=== PATIENT | female | born 1960 | race Caucasian/White ===

== ENCOUNTER → 2017-03-06 | Outpatient (CLI) | payer MEDICARE, OTHER ==
--- NOTE | 2017-03-07 09:15 | MM ---
Reason for exam: screening (asymptomatic). Last mammogram was performed 13 years and 2 months ago. History: Patient is postmenopausal. Family history of breast cancer in mother. Physical Findings: A clinical breast exam by your physician is recommended on an annual basis and results should be correlated with mammographic findings. MG 3D Screening Mammo W/Cad Bilateral CC and MLO view(s) were taken. Prior study comparison: January 07, 2004, left breast special view mammogram. December 26, 2003, bilateral screening mammogram. The breast tissue is heterogeneously dense. This may lower the sensitivity of mammography. There is chronic nodularity bilaterally. There is no dominant lesion. ASSESSMENT: Benign, BI-RAD 2 RECOMMENDATION: Routine screening mammogram of both breasts in 1 year.
== END | disposition home or self-care (01) ==
LOC: RADMAMWWP 09:09
PROVIDERS: ATTEND Family Medicine
DX: Z12.31 Encounter for screening mammogram for malignant neoplasm of breast (principal); Z80.3 Family history of malignant neoplasm of breast
CPT/HCPCS: 77063; 77067

== ENCOUNTER → 2017-06-29 | Outpatient (CLI) | payer MEDICARE, OTHER ==
--- NOTE | 2017-06-29 16:58 | CTL ---
EXAMINATION TYPE: CT Low Dose Lung DATE OF EXAM ORDERED: 06/29/2017 HISTORY: . Lung cancer screening CT DLP: 81.[address] CTDI: 2.4 mGy Automated exposure control for dose reduction was used. SCREENING VISIT: Initial COMPARISON: None TECHNIQUE: Low dose computed tomography scan was performed through the chest at 1 mm thick sections a nd reconstructed images in the coronal plane at [address] DIAGNOSTIC QUALITY: Satisfactory FINDINGS: LUNG NODULES: None. LUNGS: COPD: Severity: None Fibrosis: Severity: None Lymph nodes: None Other findings: Ascending thoracic aorta at the main pulmonary artery is 3.7 cm. In pulmonary artery bifurcation is 2.6 cm. RIGHT PLEURAL SPACE: Effusion: None Calcification: None Thickening: None Pneumothorax: None LEFT PLEURAL SPACE: Effusion: None Calcification: None Thickening: None Pneumothorax: None HEART: Heart Size: Normal Coronary calcification: Minimal Pericardial effusion: None OTHER FINDINGS: Upper abdomen: Normal Bony thorax: Normal Supraclavicular region: Normal Other: No remarkable findings IMPRESSION: No suspicious changes suggest early malignancy FOLLOW UP CT CHEST RECOMMENDATION: No CT LUNG RAD: Lung rad 1
== END | disposition home or self-care (01) ==
LOC: RADCTMAIN 15:36
PROVIDERS: ATTEND Family Medicine
DX: Z12.2 Encounter for screening for malignant neoplasm of respiratory organs (principal); Z87.891 Personal history of nicotine dependence

== ENCOUNTER 2023-01-29 07:53 | Inpatient (IN) | payer MEDICARE, OTHER ==
[2023-01-29] MEDS ORDERED: LIDOCAINE 1% INJ 10MG/ML (20 ML MDV) ONE (09:01)
[2023-01-29] MEDS ORDERED: VERAPAMIL 2.5 MG/ML 2 ML AMP ONE (09:02)
[2023-01-29] MEDS ORDERED: HEPARIN SODIUM 1,000 UN/ML (10ML VL) ONE (09:33)
[2023-01-29] MEDS ORDERED: fentaNYL (PF) 50 MCG/ML 2 ML AMP ONE (09:33)
[2023-01-29] MEDS: SODIUM CHLORIDE 0.9% 250 ML IV ONE (09:44)
[2023-01-29] MEDS: IV FLUID CONTINUATION 1,000 ML IV ONE (09:44)
[2023-01-29] MEDS: fentaNYL (PF) 50 MCG/ML 2 ML AMP IVP ONE (09:51)
[2023-01-29] MEDS: LIDOCAINE 1% INJ 10MG/ML (20 ML MDV) SQ ONE (09:53)
[2023-01-29] MEDS: VERAPAMIL SYRINGE (5 MG/10 ML) INTRAARTER ONE (09:54)
[2023-01-29] MEDS: MIDAZOLAM 2 MG/2 ML VIAL IVP ONE (09:56)
[2023-01-29] MEDS: HEPARIN SODIUM 1,000 UN/ML (10ML VL) IV ONE (09:59)
[2023-01-29] MEDS ORDERED: PRASUGREL 10 MG TAB ONE (10:03)
[2023-01-29] MEDS: PRASUGREL 10 MG TAB PO ONE (10:06)
[2023-01-29] MEDS: IOPAMIDOL-370 100ML BTL INJ ONE ×2 (10:15→10:44)
[2023-01-29] MEDS: NITROGLYCERIN 1000MCG/10ML SYRINGE INTRACORON ONE (10:17)
[2023-01-29] MEDS ORDERED: NITROGLYCERIN SL TABS 0.4 MG TAB SUBLINGUAL PRN (10:48)
[2023-01-29] MEDS ORDERED: ATROPINE SULFATE 0.1 MG/ML 10ML SYRINGE IV PRN (10:48)
[2023-01-29] MEDS ORDERED: RX INFO: IV CONTRAST WAS GIVEN 1 EACH MISC MISCELLANE PRN (10:48)
[2023-01-29] MEDS ORDERED: MAG HYDROX/AL HYDROX/SIMETH 30 ML CUP PO PRN (10:48)
[2023-01-29] MEDS ORDERED: ZOLPIDEM 5 MG TAB PO PRN (10:48)
--- NOTE | 2023-01-29 10:57 | P.CARDCATH ---
Date of Procedure: 01/29/23 Description of Procedure: Cardiac Catheterization: The patient is a 62-year-old female with a history of chronic tobacco use who presented with symptoms of chest discomfort to [facility], she was found to have an abnormal EKG and abnormal troponin. Recommendations were made regarding cardiac catheterization, the risks and the complications were discussed with the patient who is in full understanding and agreement. Procedure Description: Patient was brought to [facility] in fasting semi-sedated state after receiving Fentanyl and Benadryl achieiving moderate conscious sedated state. Using Xylocaine Anesthesia and modified Seldinger technique, a 6-Croatian sheath was introduced in the right radial artery . Subsequently, selective coronary angiography was performed using a 5-Croatian 3.5 bend Chiquis catheter. Multiple views of the coronary artery including hemiaxial views were obtained. The right Chiquis catheter was used to cross the aortic valve and LVEDP was calculated. PCI: After removing the catheters a 6-Croatian FL 4 guiding catheter was introduced. After cannulating the left main a 0.014 BMW J-wire was positioned in the distal left circumflex. Subsequently a 2.5 x 12 mm Treck balloon was advanced and inflation at 8 dragan was done. Subsequently the balloon was removed and a Calm [place] eye IVUS catheter was introduced and imaging were performed. After removing the catheter 2.5 x 23 mm Xience sadia point stent was deployed at 16 dragan. 3.0 x 8 mm NC Treck balloon was advanced and one inflation at 10 dragan was done in the proximal segment of the stent. Repeat IVUS was performed and after removing the catheter 3.5 x 8 mm NC Treck was advanced in one inflation in the proximal segment of the stent was done at 8 dragan. After removing the wire images were obtained and revealed stable successful stenting. Following that, catheter and sheath were removed. Hemostasis was obtained with deployment of vascular band . There was no immediate complication. Patient was returned to room in stable condition. Of note, the patient received a total of 9000 units of intravenous heparin as well as intra-arterial verapamil. She received an oral loading dose of Effient. Her ACT was monitored. She had mild EKG changes that resolved and her chest discomfort resolved at the end of the procedure. Findings: Left main: This is a short sized vessel that bifurcates into LAD and left circumflex, left main has no obstructive disease. LAD: This is a large size vessel, reaching to the apex, giving rise to a large diagonal branch proximally the LAD and its branches have no evidence of obstructive disease Left circumflex: This is a large nondominant vessel giving rise to 3 obtuse marginal branch, after the takeoff of the first obtuse marginal branch is a 95- 99% stenosis extending into the left circumflex after the second obtuse marginal branch. RCA: This is a large dominant vessel, bifurcating distally to PDA and PLV. The mid RCA has stent 20% plaque, the rest of the vessel has no high-grade stenosis Left Ventriculogram: Not performed Hemodynamics: There was no gradient across the aortic valve, LVEDP was 24-28 mmHg Conclusion: 1. 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 Mild disease in the mid RCA 3. Elevated LVEDP 4. Successful stenting of the mid left circumflex with reduction of stenosis from 95% to 0% with intravascular ultrasound imaging Recommendations: The patient will continue on aspirin and Effient without any interruption for one year in addition to aggressive coronary risk modifications and attempting to maintain her LDL below 70 mg/dL. The findings and the recommendations were discussed with the patient and the family and they were in full understanding and agreement. Duration of sedation is 48 minutes.
[2023-01-29 11:11] LABS: Glucose,Whole Blood 161 mg/dL (70-110)
[2023-01-29] MEDS: SODIUM CHLORIDE 0.9% 1,000 ML in EMPTY BAG 1 BAG IV SCH (11:39)
[2023-01-29] MEDS: lisinopriL 5 MG TAB PO SCH (11:39)
[2023-01-29] MEDS ORDERED: ALBUTEROL NEBULIZED 2.5 MG/3 ML INHALATION PRN (12:01)
--- NOTE | 2023-01-29 12:01 | P.HPIM ---
History of Present Illness this is a pleasant 62 years old female with past medical history of hypertension who presents to [facility] with signs and symptoms of NSTEMI with chest pain , WITH elevated troponin and no EKG changes. Patient was transferred to this facility [facility] and she underwent cardiac cath and successful PCI to the left mid circumflex artery with improvement of the stenosis from 95% and 0% She has other mild stenosis of the RCA which does not need to stenting for now. Currently patient lying in bed comfortable, currently she denies any chest pain She is hemodynamically stable Glucose 161. No labs and this facility Review of Systems Review of systems CONSTITUTIONAL: No fever, no malaise, no fatigue. HEENT: No recent visual problems or hearing problems. Denied any sore throat. CARDIOVASCULAR: No orthopnea, PND, no palpitations, no syncope. PULMONARY: No shortness of breath, no cough, no hemoptysis. GASTROINTESTINAL: No diarrhea, no nausea, no vomiting, no abdominal pain. Normoactive bowel sounds. NEUROLOGICAL: No headaches, no weakness, no numbness. HEMATOLOGICAL: Denies any bleeding or petechiae. GENITOURINARY: Denies any burning micturition, frequency, or urgency. MUSCULOSKELETAL/RHEUMATOLOGICAL: Denies any joint pain, swelling, or any muscle pain. ENDOCRINE: Denies any polyuria or polydipsia. Past Medical History Past Medical History: Hypertension Additional Past Medical History / Comment(s): back pain History of Any Multi-Drug Resistant Organisms: None Reported Past Surgical History: Cholecystectomy, Orthopedic Surgery, Tubal Ligation Past Psychological History: No Psychological Hx Reported Past Alcohol Use History: None Reported Past Drug Use History: None Reported Medications and Allergies Home Medications Medication Instructions Recorded Confirmed Type Hydrocodone/Acetaminophen [[place] 1 tab PO TID PRN 10/04/14 01/29/23 History 10-325] Albuterol Inhaler [Ventolin Hfa 1 - 2 puff INHALATION RT-Q6H PRN 01/29/23 01/29/23 History Inhaler] Insulin NPH Human Isophane 12 unit SQ AC-BRKFST 01/29/23 01/29/23 History [humuLIN N Kwikpen] Insulin NPH Human Isophane 35 unit SQ AC-SUPPER 01/29/23 01/29/23 History [humuLIN N Kwikpen] LORazepam [Ativan] 1 mg PO DIRECTED 01/29/23 01/29/23 History Levothyroxine Sodium [Synthroid] 125 mcg PO DAILY 01/29/23 01/29/23 History Naproxen [EC-Naprosyn] 500 mg PO BID PRN 01/29/23 01/29/23 History amLODIPine [Norvasc] 10 mg PO DAILY 01/29/23 01/29/23 History sitaGLIPtin [Januvia] 100 mg PO DAILY 01/29/23 01/29/23 History Allergies Allergy/AdvReac Type Severity Reaction Status Date / Time codeine Allergy Unknown Verified 01/29/23 11:47 Physical Exam Vitals: Vital Signs Temp Pulse Resp BP Pulse Ox 01/29/23 11:15 97.5 F L 62 17 147/66 97 01/29/23 11:02 61 28 H Intake and Output 01/28/23 01/29/23 01/29/23 22:59 06:59 14:59 Intake Total 304 Balance 304 Intake: IV 100 Intake, IV Titration 204 Amount Sodium Chloride 0.9% 1, 204 000 ml In Empty Bag 1 bag @ 1 ML/KG/HR 102 mls/hr IV .Q9H49M [facility] Rx#: [id number] Other: Weight 102 kg GENERAL: The patient is alert and oriented x3, not in any acute distress. Well developed, well nourished. HEENT: Pupils are round and equally reacting to light. EOMI. No scleral icterus. No conjunctival pallor. Normocephalic, atraumatic. No pharyngeal erythema. No thyromegaly. CARDIOVASCULAR: S1 and S2 present. No murmurs, rubs, or gallops. PULMONARY: Chest is clear to auscultation, no wheezing , no crackles. ABDOMEN: Soft, nontender, nondistended, normoactive bowel sounds. No palpable organomegaly. MUSCULOSKELETAL: No joint swelling or deformity. EXTREMITIES: No cyanosis, clubbing, or pedal edema. NEUROLOGICAL: Gross neurological examination did not reveal any focal deficits. SKIN: No rashes. no petechiae. Results Labs: Abnormal Lab Results - Last 24 Hours (Table) 01/29/23 Range/Units 11:09 POC Glucose (mg/dL) 161 H (70-110) mg/dL Assessment and Plan Assessment: None STEMI status post PCI to left circumflex artery Hypertension Obesity with BMI of 35.2 Plan: Continue with aspirin and effient On Lipitor high dose On lisinopril Cardiology consult on the case Further recommendation based on patient's progress DVT prophylaxis, already on dual antiplatelet therapy GI prophylaxis Pepcid.
[2023-01-29] MEDS: HYDROcodone/APAP 10-325MG 1 EACH TAB PO PRN (16:02)
[2023-01-29 20:13] LABS: Glucose,Whole Blood 182 mg/dL (70-110)
[2023-01-29] MEDS: FAMOTIDINE 20 MG/2 ML VIAL IV SCH (21:14)
[2023-01-29] MEDS: METOPROLOL TARTRATE 25 MG TAB PO SCH (21:14)
[2023-01-29] MEDS: ATORVASTATIN 80 MG TAB PO SCH (21:14)
[2023-01-30 00:34] VITALS: RESP 18
[2023-01-30 06:02] LABS: Glucose,Whole Blood 181 mg/dL (70-110)
[2023-01-30] MEDS: LEVOTHYROXINE 125 MCG TAB PO SCH (06:19)
[2023-01-30] MEDS: INSULIN ASPART (NovoLOG) 100 UNIT/ML VIAL SQ SCH (06:19)
[2023-01-30] MEDS: ASPIRIN 81 MG PO SCH (08:34)
[2023-01-30] MEDS: PRASUGREL 10 MG TAB PO SCH (08:34)
[2023-01-30 08:59] VITALS: BP 136/64; PULSE 64; TEMP 97.8
--- NOTE | 2023-01-30 11:05 | P.PN ---
Subjective HISTORY OF PRESENT ILLNESS: This a 62-year-old female who initially presented to [facility] with chest pain. She underwent cardiac catheterization yesterday revealing severe stenosis in the mid left circumflex, mild disease in the mid RCA, elevated LVEDP. Patient underwent successful stenting of the mid left circumflex. Patient examined this morning at the bedside. Patient denies chest pain or pressure. She denies shortness of breath. Vital signs are stable. Right radial cath site with pulse present. PHYSICAL EXAM: VITAL SIGNS: Reviewed. GENERAL: Well-developed in no acute distress. NECK: Supple. No JVD or thyromegaly LUNGS: Respirations even and unlabored. Lungs essentially clear to auscultation bilaterally. HEART: Regular rate and rhythm. S1 and S2 heard. EXTREMITIES: Normal range of motion. No clubbing or cyanosis. Peripheral pulses intact. No lower extremity edema ASSESSMENT: Non-STEMI Status post cardiac catheterization with stenting of the mid left circumflex Hypertension Hyperlipidemia Morbid obesity: BMI 35.2 Nicotine dependence, patient smokes 1 PPD PLAN: 2-D echo has been ordered. Await results Continue dual antiplatelet therapy with aspirin and Effient Continue high-intensity statin Continue additional cardiac medications Anticipate discharge home this afternoon Further recommendations pending patient's course Nurse practitioner note has been reviewed by physician. Signing provider agrees with the documented findings, assessment, and plan of care. Objective - Vital Signs Vital signs: Vital Signs Temp 97.8 F 01/30/23 08:00 Pulse 64 01/30/23 08:00 Resp 18 01/30/23 08:00 BP 136/64 01/30/23 08:00 Pulse Ox 94 L 01/30/23 08:00 FiO2 Intake & Output 01/29/23 01/30/23 01/30/23 18:59 06:59 18:59 Intake Total 1312 0 240 Balance 1312 0 240 Weight 102 kg Intake: IV 100 Intake, IV Titration 612 0 Amount Sodium Chloride 0.9% 1, 612 0 000 ml In Empty Bag 1 bag @ 1 ML/KG/HR 102 mls/hr IV .Q9H49M [facility] Rx#: [id number] Oral 600 240 Other: Voiding Method Toilet # Voids 1 1 # Bowel Movements 1 - Labs Labs: Abnormal Lab Results - Last 24 Hours (Table) 01/29/23 01/29/23 01/29/23 Range/Units 11:09 12:31 20:11 POC Glucose (mg/dL) 161 H 182 H (70-110) mg/dL Hemoglobin A1c 8.7 H (<=6.0) % 01/30/23 Range/Units 05:58 POC Glucose (mg/dL) 181 H (70-110) mg/dL Hemoglobin A1c (<=6.0) %
--- NOTE | 2023-01-30 13:50 | CA ---
Transthoracic Echo Report Name: Christina Harrison Age: 62 Gender: F : 1960 Exam Date: 01/30/2023 08:50 Exam Location: [place] [facility] Ht (in): 67 Wt (lb): 224 Ordering Physician: Srinivas Kiran MD ([id number]) Attending/Referring Phys: [employer] Di[employer] Tita Grant [facility] Procedure CPT: Indications: UT Cardiac Hx: Technical Quality: Technically difficult study Contrast 1: Total Dose (mL): Contrast 2: Total Dose (mL): MEASUREMENTS (Male / Female) Normal Values 2D ECHO LV Diastolic Diameter PLAX 5.6 cm 4.2 - 5.9 / 3.9 - 5.3 cm LV Systolic Diameter PLAX 4.4 cm IVS Diastolic Thickness 1.2 cm 0.6 - 1.0 / 0.6 - 0.9 cm LVPW Diastolic Thickness 1.2 cm 0.6 - 1.0 / 0.6 - 0.9 cm LV Relative Wall Thickness 0.4 LVOT Diameter 2.1 cm Ascending Aorta Diameter 3.2 cm M-MODE Aortic Root Diameter MM 2.9 cm LA Systolic Diameter MM 3.6 cm LA Ao Ratio MM 1.3 AV Cusp Separation MM 1.9 cm DOPPLER AV Peak Velocity 140.5 cm/s AV Peak Gradient 7.9 mmHg AV Mean Velocity 112.8 cm/s AV Mean Gradient 5.4 mmHg AV Velocity Time Integral 36.9 cm LVOT Peak Velocity 115.9 cm/s LVOT Peak Gradient 5.4 mmHg LVOT Velocity Time Integral 27.8 cm LVOT Stroke Volume 99.8 cm??? LVOT Stroke Volume Index 47.1 ml/m??? LVOT Cardiac Index 2863.4 cm???/min???m??? AV Area Cont Eq vti 2.7 cm??? AV Area Cont Eq pk 3.0 cm??? Mitral E Point Velocity 85.0 cm/s Mitral A Point Velocity 86.4 cm/s Mitral E to A Ratio 1.0 MV Deceleration Time 239.5 ms LV E' Lateral Velocity 8.7 cm/s Mitral E to LV E' Lateral Ratio 9.7 LV E' Septal Velocity 5.9 cm/s Mitral E to LV E' Septal Ratio 14.4 Right Atrial Pressure 8.0 mmHg FINDINGS Left Ventricle Mild concentric LVH. Mildly increased left ventricular diastolic diameter. Mildly reduced global left ventricular systolic function. Left ventricular ejection fraction is estimated at 45-50%. Right Ventricle Mild right ventricular dilatation. Right Atrium Normal right atrial size. Left Atrium Mild left atrial dilatation. Mitral Valve Structurally normal mitral valve. Trace mitral regurgitation. Aortic Valve Trileaflet aortic valve. No aortic valve stenosis or regurgitation. Tricuspid Valve Structurally normal tricuspid valve. No tricuspid regurgitation. Pulmonic Valve Structurally normal pulmonic valve. Trace pulmonic regurgitation. Pericardium No pericardial effusion. Aorta Normal size aortic root and proximal ascending aorta. CONCLUSIONS Technically difficult study. Left ventricular ejection fraction is estimated at 45-50%. Mildly reduced global left ventricular systolic function. Mild concentric LVH. No significant valvular dysfunction RVSP could not be estimated Previewed by: Dr Donald Lentz (Electronically Signed) Final Date: 30 January 2023 13:49
[2023-01-30] MEDS ORDERED: FAMOTIDINE 20 MG TAB PO SCH (21:00)
--- NOTE | 2023-01-31 06:30 | P.DS ---
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 Patient was transferred to this facility [facility] and she underwent cardiac cath and successful PCI to the left mid circumflex artery with im provement of the stenosis from 95% and 0%. After the procedure patient feels better back to her baseline she denies chest pain or dyspnea. No coughing. No change in urine or bowel habits. No fever. Patient also started on dual antiplatelet therapy with aspirin and effient, and the prescriptions provided for the patient with instructions of importance of aggressive treatment with risks benefits are explained for the patient in details and she verbalized understanding and acceptance. As per bed side nurse Carlos cardiology team has cleared the patient for discharge and outpatient cystoscopy if she is not going to be discharged she will leave AMA. When I came to the room patient was sitting in chair states that if she is not going to be discharged then she is going to leave AMA, granddaughter was also in the room ready to pick her up and go home. Patient refused any further workup like to check her breathing pattern stating that she is fine and asymptomatic and she wants to go home. Patient was counseled extensively to quit smoking and she verbalized understanding and acceptance. Also I told the patient that her sugar is uncontrolled and her hemoglobin A1c is on the high side at 8.7%. Patient takes insulin NPH 12 units in the morning and 30 units at night, pancreas dose at 15 unit and 40 units respectively but patient does not want prescription. Also she has Januvia at home. Patient is instructed to follow up with turnstile attendant for better glucose control Also counseled about weight loss. As such patient was cleared for discharge by vessel liner Problems and management plan were discussed with the patient and he verbalized understanding and acceptance Patient was found stable and can be discharged home in guarded prognosis however he needs follow-up as an outpatient. Patient was instructed to follow up with PCP Dr. joseph within one week and patient agrees. Patient says that she has the contact information and she does not anymore. Patient was instructed to follow up with vessel liner Dr. Miller in one week and she agrees as well as with turnstile attendant Dr. wu in 1-2 weeks and she agrees Physical exam -Gen: patient is a AAOx3, no distress. Obese CVS: S1-S2, RRR, no murmur Lungs: B/L CTA, no wheezing Abdomen: soft, no distention, no tenderness, positive bowel sounds Extremity: no leg edema or induration Time spent more than 35 minutes Plan - Discharge Summary Discharge Rx Participant: Yes New Discharge Prescriptions: New Prasugrel [Effient] 10 mg PO DAILY #30 tab Atorvastatin [Lipitor] 80 mg PO HS #30 tab Metoprolol Tartrate [Lopressor] 25 mg PO BID #60 tab Aspirin 81 mg PO DAILY #30 tab Famotidine [Pepcid] 20 mg PO BID #60 tab lisinopriL [Zestril] 5 mg PO BID #60 tab Continue Hydrocodone/Acetaminophen [[place] 10-325] 1 tab PO TID PRN PRN Reason: Pain Albuterol Inhaler [Ventolin Hfa Inhaler] 1 - 2 puff INHALATION RT-Q6H PRN PRN Reason: Shortness Of Breath sitaGLIPtin [Januvia] 100 mg PO DAILY amLODIPine [Norvasc] 10 mg PO DAILY Levothyroxine Sodium [Synthroid] 125 mcg PO DAILY Changed Insulin NPH Human Isophane [humuLIN N Kwikpen] 15 unit SQ AC-BRKFST #0 Insulin NPH Human Isophane [humuLIN N Kwikpen] 40 unit SQ AC-SUPPER #0 Discontinued Naproxen [EC-Naprosyn] 500 mg PO BID PRN PRN Reason: Pain Or Fever > 100.5 No Action LORazepam [Ativan] 1 mg PO DIRECTED Discharge Medication List Hydrocodone/Acetaminophen [[place] 10-325] 1 tab PO TID PRN 10/04/14 [History] Albuterol Inhaler [Ventolin Hfa Inhaler] 1 - 2 puff INHALATION RT-Q6H PRN 01/29/23 [History] LORazepam [Ativan] 1 mg PO DIRECTED 01/29/23 [History] Levothyroxine Sodium [Synthroid] 125 mcg PO DAILY 01/29/23 [History] amLODIPine [Norvasc] 10 mg PO DAILY 01/29/23 [History] sitaGLIPtin [Januvia] 100 mg PO DAILY 01/29/23 [History] Aspirin 81 mg PO DAILY #30 tab 01/30/23 [Rx] Atorvastatin [Lipitor] 80 mg PO HS #30 tab 01/30/23 [Rx] Famotidine [Pepcid] 20 mg PO BID #60 tab 01/30/23 [Rx] Insulin NPH Human Isophane [humuLIN N Kwikpen] 15 unit SQ AC-BRKFST #0 01/30/23 [Rx] Insulin NPH Human Isophane [humuLIN N Kwikpen] 40 unit SQ AC-SUPPER #0 01/30/23 [Rx] Metoprolol Tartrate [Lopressor] 25 mg PO BID #60 tab 01/30/23 [Rx] Prasugrel [Effient] 10 mg PO DAILY #30 tab 01/30/23 [Rx] lisinopriL [Zestril] 5 mg PO BID #60 tab 01/30/23 [Rx] Follow up Appointment(s)/Referral(s): Severiano Wu MD [REFERRING] - 1 Week (diabetes doctor ) Miko Miller MD [STAFF PHYSICIAN] - 1 Week (heart doctor ) Patient Instructions/Handouts: *Surgery [facility] - After Heart Catheterization - [facility] Instructions Activity/Diet/Wound Care/Special Instructions: heart healthy diet, low carbohydrate diet [address] per day activity is restricted till you see your doctor we recommend to check your glucose 4 times per day , before each meal and at bed time , keep the results in a log book and bring it to your doctor on your appointment date if your glucose is less than 70 or more than 400 then call 911 and come to emergency room Discharge Disposition: HOME WITH HOME HEALTH SERVICES
== END 2023-01-30 13:20 | disposition home or self-care (01) | DRG 322 ==
LOC: 2SICU 09:17 → 3SCARD 20:19
PROVIDERS: ADMIT Internal Medicine; ATTEND Internal Medicine
PROC: B240ZZ3 Ultrasonography of Single Coronary Artery, Intravascular (ICD-10-PCS; 2023-01-29)
PROC: 027034Z Dilation of Coronary Artery, One Artery with Drug-eluting Intraluminal Device, Percutaneous Approach (ICD-10-PCS; principal; 2023-01-29 08:13)
PROC: 4A023N7 Measurement of Cardiac Sampling and Pressure, Left Heart, Percutaneous Approach (ICD-10-PCS; 2023-01-29 08:13)
PROC: B2111ZZ Fluoroscopy of Multiple Coronary Arteries using Low Osmolar Contrast (ICD-10-PCS; 2023-01-29 08:13)
DX: I21.4 Non-ST elevation (NSTEMI) myocardial infarction (principal); I42.9 Cardiomyopathy, unspecified; I10 Essential (primary) hypertension; E66.01 Morbid (severe) obesity due to excess calories; E11.65 Type 2 diabetes mellitus with hyperglycemia; J44.9 Chronic obstructive pulmonary disease, unspecified; Z79.4 Long term (current) use of insulin; E03.9 Hypothyroidism, unspecified; I25.10 Atherosclerotic heart disease of native coronary artery without angina pectoris; E78.5 Hyperlipidemia, unspecified; F17.210 Nicotine dependence, cigarettes, uncomplicated; Z68.35 Body mass index [BMI] 35.0-35.9, adult; Z79.84 Long term (current) use of oral hypoglycemic drugs; Z79.890 Hormone replacement therapy; Z79.899 Other long term (current) drug therapy; Z88.5 Allergy status to narcotic agent
CPT/HCPCS: 83036; 92978; 93306; 93458

== ENCOUNTER 2024-06-18 18:48 | Inpatient (IN) | payer MEDICARE, OTHER ==
[2024-06-18] MEDS ORDERED: RX INFO: IV CONTRAST WAS GIVEN 1 EACH MISC MISCELLANE PRN (20:05)
--- NOTE | 2024-06-18 20:08 | ED ---
General Adult HPI - General Chief complaint: Extremity Injury, Lower Stated complaint: [place] leg pain Time Seen by Provider: 06/18/24 19:48 Source: patient, RN notes reviewed Limitations: no limitations - History of Present Illness Initial comments: This is a 64-year-old female with history of hypertension, COPD, coronary artery disease (with stent placement), peripheral arterial disease, and tobacco abuse presented to emergency department for complaint of increasing in left leg pain. States that she has been having worsening pain in her left lower extremity over the past few days that starts in her upper thigh and goes down to her toes. she was evaluated at [facility] yesterday evening and diagnosed was diagnosed with severe arterial disease of the left lower extremity via arterial US. She states that she is instructed to follow-up with Dr. Charles tomorrow for a stent placement. She denies chest pain, difficulty breathing, palpitations, dizziness, headedness, history of DVT or PE. Denies current blood thinner use. - Related Data Home Medications Medication Instructions Recorded Confirmed Hydrocodone/Acetaminophen [[place] 1 tab PO TID PRN 10/04/14 01/29/23 10-325] Albuterol Inhaler [Ventolin Hfa 1 - 2 puff INHALATION RT-Q6H PRN 01/29/23 01/29/23 Inhaler] LORazepam [Ativan] 1 mg PO DIRECTED 01/29/23 01/29/23 Levothyroxine Sodium [Synthroid] 125 mcg PO DAILY 01/29/23 01/29/23 amLODIPine [Norvasc] 10 mg PO DAILY 01/29/23 01/29/23 sitaGLIPtin [Januvia] 100 mg PO DAILY 01/29/23 01/29/23 Previous Rx's Medication Instructions Recorded Aspirin 81 mg PO DAILY #30 tab 01/30/23 Atorvastatin [Lipitor] 80 mg PO HS #30 tab 01/30/23 Famotidine [Pepcid] 20 mg PO BID #60 tab 01/30/23 Insulin NPH Human Isophane 15 unit SQ AC-BRKFST #0 01/30/23 [humuLIN N Kwikpen] Insulin NPH Human Isophane 40 unit SQ AC-SUPPER #0 01/30/23 [humuLIN N Kwikpen] Metoprolol Tartrate [Lopressor] 25 mg PO BID #60 tab 01/30/23 Prasugrel [Effient] 10 mg PO DAILY #30 tab 01/30/23 lisinopriL [Zestril] 5 mg PO BID #60 tab 01/30/23 Allergies Allergy/AdvReac Type Severity Reaction Status Date / Time codeine Allergy Unknown Verified 06/18/24 18:58 Review of Systems ROS Statement: Those systems with pertinent positive or pertinent negative responses have been documented in the HPI. ROS Other: All systems not noted in ROS Statement are negative. Past Medical History Past Medical History: Hypertension Additional Past Medical History / Comment(s): back pain History of Any Multi-Drug Resistant Organisms: None Reported Past Surgical History: Cholecystectomy, Orthopedic Surgery, Tubal Ligation Past Psychological History: No Psychological Hx Reported Past Alcohol Use History: None Reported Past Drug Use History: None Reported General Exam Limitations: no limitations General appearance: alert, in no apparent distress Neck exam: Present: normal inspection. Absent: tenderness, meningismus, lymphadenopathy Respiratory exam: Present: normal lung sounds bilaterally. Absent: respiratory distress, wheezes, rales, rhonchi, stridor Cardiovascular Exam: Present: regular rate, normal rhythm, normal heart sounds. Absent: systolic murmur, diastolic murmur, rubs, gallop, clicks GI/Abdominal exam: Present: soft, normal bowel sounds. Absent: distended, tenderness, guarding, rebound, rigid Left Foot/Toe exam: Present: normal inspection Neurovascular tendon exam: Present: no vascular compromise Gait: not tested/not observed Back exam: Present: normal inspection Skin exam: Present: warm, dry, intact, normal color. Absent: rash Course Vital Signs 06/18/24 06/18/24 06/18/24 18:56 19:55 20:00 Temperature 98.3 F Pulse Rate 87 78 88 Respiratory 20 26 H 22 Rate Blood Pressure 138/78 155/75 145/71 O2 Sat by Pulse 93 L 93 L 94 L Oximetry 06/18/24 23:00 Temperature Pulse Rate 85 Respiratory 22 Rate Blood Pressure 154/61 O2 Sat by Pulse 94 L Oximetry Medical Decision Making - Medical Decision Making Was pt. sent in by a medical professional or institution (, PA, AIRFRAME DESIGN ENGINEER, urgent care, hospital, or [facility]...) When possible be specific @ -No Did you speak to anyone other than the patient for history (EMS, parent, family, police, friend...)? What history was obtained from this source @ -No Did you review nursing and triage notes (agree or disagree)? Why? @ -I reviewed and agree with nursing and triage notes Were old charts reviewed (outside hosp., previous admission, EMS record, old EKG, old radiological studies, urgent care reports/EKG's, [facility] records)? Report findings @ -Bilateral arterial duplex ultrasound reveals severe atherosclerosis of bilateral lower extremities with severe arterial insufficiency on the right greater than the left, right lower extremity waveforms on the patient with near occlusion of the mid to distal femoral artery with barely technical flow, unde tectable flow in the right peroneal, posterior and anterior tibial arteries Undetectable flow in the left superficial femoral artery mid Differential Diagnosis (chest pain, altered mental status, abdominal pain women, abdominal pain men, vaginal bleeding, weakness, fever, dyspnea, syncope, headache, dizziness, GI bleed, back pain, seizure, CVA, palpatations, mental health, musculoskeletal)? @ -Not applicable EKG interpreted by me (3pts min.). @ -EKG completed at 2051 sinus rhythm with a ventricular to 75, GA interval 146, QRS 93, QTc 438, QT 410. There are noted T wave abnormalities in leads I, II, III, aVF, V6 and V5. As compared to previous EKG completed in January 2023 there are no acute changes. X-rays interpreted by me (1pt min.). @ -None done CT interpreted by me (1pt min.). @ -CTA of bilateral lower extremities reveals atherosclerotic disease involving the abdominal aorta and lower extremity vasculature with long segment occlusion of the left superficial femoral artery beginning at its origin with distal reconstitution and occlusion of the distal right common femoral artery with continued long segment occlusion of the superficial right femoral artery U/S interpreted by me (1pt. min.). @ -None done What testing was considered but not performed or refused? (CT, X-rays, U/S, labs)? Why? @ -None What meds were considered but not given or refused? Why? @ -None Did you discuss the management of the patient with other professionals (professionals i.e. , PA, AIRFRAME DESIGN ENGINEER, lab, RT, psych nurse, 7th grade social studies teacher, microbiology teacher, teacher, job placement officer, bilingual patient support caseworker)? Give summary @ -Spoke with on-call vascular specialist, Dr. Charles, was agreed to admit the patient with medicine. I spoke with Dr. Garza, from [facility] was agreed to admit the patient. Was smoking cessation discussed for >3mins.? @ -No Was critical care preformed (if so, how long)? @ -Critical care was performed for longer than 35 minutes this patient was started on a heparin drip with concern for severe atherosclerosis of bilateral lower extremities with left more severe than the right. Were there social determinants of health that impacted care today? How? (Homelessness, low income, unemployed, alcoholism, drug addiction, transportation, low edu. Level, literacy, decrease access to med. care, correction, rehab)? @ -No Was there de-escalation of care discussed even if they declined (Discuss DNR or withdrawal of care, Hospice)? DNR status @ -No What co-morbidities impacted this encounter? (DM, HTN, Smoking, COPD, CAD, Cancer, CVA, ARF, Chemo, Hep., AIDS, mental health diagnosis, sleep apnea, morbid obesity)? @ -None Was patient admitted / discharged? Hospital course, mention meds given and route, prescriptions, significant lab abnormalities, going to OR and other pertinent info. @ -Admitted. 64-year-old female presenting to emergency department with bilateral lower extremity pain. Faint pedal pulses palpated of the left lower extremity and Doppler was used to determine pedal pulse. Extremity is warm to the touch and patient is able to move her toes. She is varicose on Dilaudid for pain relief. Laboratory testing including CBC, CMP, coagulation unremarkable. CTA of bilateral lower extremities reveals severe atherosclerosis. Recommended by vascular the patient be started on heparin drip. Case discussed with Dr. Lyn Undiagnosed new problem with uncertain prognosis? @ -No Drug Therapy requiring intensive monitoring for toxicity (Heparin, Nitro, Insulin, Cardizem)? @ -Yes, heparin Were any procedures done? @ -No Diagnosis/symptom? @ -Peripheral arterial disease Acute, or Chronic, or Acute on Chronic? @ -Acute Uncomplicated (without systemic symptoms) or Complicated (systemic symptoms)? @ -Complicated Side effects of treatment? @ -No Exacerbation, Progression, or Severe Exacerbation? @ -No Poses a threat to life or bodily function? How? (Chest pain, USA, GA, pneumonia, PE, COPD, DKA, ARF, appy, cholecystitis, CVA, Diverticulitis, Homicidal, Suicidal, threat to staff... and all critical care pts) @ -Yes, if untreated may have potential to limb ischemia and - Lab Data Result diagrams: 06/18/24 20:32 06/18/24 20:32 Lab Results 06/18/24 06/18/24 06/18/24 Range/Units 20:32 20:32 20:32 WBC 10.91 H (4.50-10.00) 10*3/uL RBC 5.33 H (4.10-5.20) 10*6/uL Hgb 14.8 (12.0-15.0) g/dL Hct 46.5 H (37.2-46.3) % MCV 87.2 (80.0-97.0) fL MCH 27.8 (27.0-32.0) pg MCHC 31.8 L (32.0-37.0) g/dL Plt Count 281 (140-440) 10*3/uL MPV 9.5 (9.5-12.2) fL Immature Gran % (Auto) 0.4 % Neutrophils % 59.0 % Lymphocytes % 29.0 % Monocytes % 9.3 % Eosinophils % 1.7 % Basophils % 0.6 % Immature Gran # 0.04 (0.00-0.04) 10*3/uL Neutrophils # 6.43 (1.80-7.70) 10*3/uL Lymphocytes # 3.16 (0.90-5.00) 10*3/uL Monocytes # 1.02 H (0.20-1.00) 10*3/uL Eosinophils # 0.19 (0.04-0.35) 10*3/uL Basophils # 0.07 (0.00-0.10) 10*3/uL PT 10.5 (10.0-12.5) sec INR 0.9 (<1.2) APTT 24.1 (22.0-30.0) sec Sodium 137 (137-145) mmol/L Potassium 4.1 (3.5-5.1) mmol/L Chloride 104 (98-107) mmol/L Carbon Dioxide 25 (22-30) mmol/L Anion Gap 8 mmol/L BUN 22 H (7-17) mg/dL Creatinine 0.91 (0.52-1.04) mg/dL Est GFR (CKD-EPI)AfAm 76 (>60 ml/min/1.73 sqM) Est GFR (CKD-EPI)NonAf 66 (>60 ml/min/1.73 sqM) Glucose 184 H (74-99) mg/dL Calcium 9.6 (8.4-10.2) mg/dL Total Bilirubin 0.5 (0.2-1.3) mg/dL AST 16 (14-36) U/L ALT 14 (4-34) U/L Alkaline Phosphatase 98 (38-126) U/L Total Protein 6.8 (6.3-8.2) g/dL Albumin 3.9 (3.5-5.0) g/dL Disposition Clinical Impression: Peripheral arterial disease Disposition: ADMITTED IP TO THIS [facility] Condition: Stable Decision to Admit Reason: Admit from EC Decision Date: 06/18/24 Decision Time: 22:24
[2024-06-18 20:42] LABS: Basophils # (A) 0.07 10*3/uL (0.00-0.10); Basophils % (A) 0.6 %; Eosinophils # (A) 0.19 10*3/uL (0.04-0.35); Eosinophils % (A) 1.7 %; HCT 46.5 % (37.2-46.3); HGB 14.8 g/dL (12.0-15.0); Lymphocytes # (A) 3.16 10*3/uL (0.90-5.00); MCH 27.8 pg (27.0-32.0); MCHC 31.8 g/dL (32.0-37.0); MCV 87.2 fL (80.0-97.0); Mean Platelet Volume 9.5 fL (9.5-12.2); Monocytes # (A) 1.02 10*3/uL (0.20-1.00); Monocytes % (A) 9.3 %; Neutrophils # (A) 6.43 10*3/uL (1.80-7.70); Platelet Count 281 10*3/uL (140-440); RBC 5.33 10*6/uL (4.10-5.20); RDW 15.2 % (11.5-14.5); WBC 10.91 10*3/uL (4.50-10.00)
[2024-06-18 20:54] LABS: ALT 14 U/L (4-34); AST 16 U/L (14-36); African American GFR (CKD) 76 (>60 ml/min/1.73 sqM); Albumin 3.9 g/dL (3.5-5.0); Alkaline Phosphatase 98 U/L (38-126); Anion Gap 8 mmol/L; Blood Urea Nitrogen 22 mg/dL (7-17); Calcium 9.6 mg/dL (8.4-10.2); Carbon Dioxide 25 mmol/L (22-30); Chloride 104 mmol/L (98-107); Glucose 184 mg/dL (74-99); INR 0.9 (<1.2); Non-African American GFR(CKD) 66 (>60 ml/min/1.73 sqM); Partial Thromboplastin Time 24.1 sec (22.0-30.0); Potassium 4.1 mmol/L (3.5-5.1); Prothrombin Time 10.5 sec (10.0-12.5); Sodium 137 mmol/L (137-145); Total Bilirubin 0.5 mg/dL (0.2-1.3); Total Protein 6.8 g/dL (6.3-8.2)
--- NOTE | 2024-06-18 21:54 | CT ---
EXAMINATION TYPE: CT angio lower extremity BILAT CT DLP: 1368.2 mGycm, Automated exposure control for dose reduction was used. DATE OF EXAM: 06/18/2024 9:39 PM COMPARISON:Lumbosacral spine radiograph 04/28/2022 CLINICAL INDICATION:Female, 64 years old with history of severe bilateral PAD; Pt comes in with an in crease in left leg pain. Pt states she is due to have a stent placed in the morning. Pt states her pa in got worse today. TECHNIQUE: Multiple thin slice sub-millimeter images were obtained through the abdomen, pelvis and lo wer extremities after administration of contrast. Patient was given Isovue 370, 100 cc intravenously . 3-D reconstructed images and maximum intensity projection images were obtained of the arterial vas culature of the pelvis and lower extremities. FINDINGS: CTA Abdomen and pelvis: Moderate atherosclerotic calcification of the visualized abdominal aorta and its branches. No abdominal aortic aneurysm. The visualized portion of the celiac access is patent. Th e SMA is widely patent. No significant stenosis of the patent left renal artery. Additional smaller p atent left renal artery inferior. Mild stenosis at the origin of the right single renal artery. Nonvi sualization of the RICHARD. Mild to moderate amount of atherosclerotic plaque involving the bilateral com mon carotid arteries which are patent without significant stenosis. The bilateral internal iliac baron jada are patent without the scatter plaque identified. The bilateral external iliac arteries are wide ly patent. CTA Lower extremities: Right: There is occlusion of the distal common femoral artery. The deep femoral artery is patent at i ts origin. There is long segment superficial femoral artery occlusion beginning its origin. There is distal reconstitution demonstrated. The popliteal artery is patent. The tibioperoneal trunk is patent with at least mild stenosis secondary to calcified plaque. The anterior and posterior tibial arterie s are patent across the ankle joint. The peroneal artery is patent across the ankle joint. Left: The left common femoral artery is patent with mild to moderate amount of atherosclerotic plaque . The left deep femoral artery is widely patent. There is long segment occlusion of the superficial f emoral artery just after its origin with distal reconstitution. The popliteal artery is widely patent . The tibioperoneal trunk is widely patent. The anterior and posterior tibial arteries are patent and cross the ankle joint. The peroneal artery is patent and crosses the ankle joint. VISCERA: The liver, spleen, adrenal glands, kidneys, pancreas, and gallbladder are not optimally enha nced due the arterial phase utilized. LIVER: The visualized portion is unremarkable. GALLBLADDER AND BILE DUCTS: Gallbladder is surgically absent. PANCREAS: The visualized portion is unremarkable. SPLEEN: The visualized portion is unremarkable. Majority of the spleen is not included in the field-o f-view. ADRENAL GLANDS: The visualized portion is unremarkable. KIDNEYS AND URETERS: No evidence of hydronephrosis or renal calculus. The kidneys enhance symmetrical ly. Right renal superior pole 2.2 cm simple cyst. No follow-up is recommended. The superior pole of t he left kidney is not included in the vyrpb-me-ctlm. PELVIS BLADDER: Unremarkable REPRODUCTIVE: Unremarkable. ABDOMEN & PELVIS STOMACH AND BOWEL: Unremarkable. No evidence of bowel obstruction. PERITONEUM: No evidence of pneumoperitoneum or free fluid. VASCULATURE: No evidence of aortic aneurysm. MUSCULOSKELETAL: No acute osseous abnormalities. Degenerative changes of bilateral SI joints. Multile berta facet arthropathy lower lumbar spine. LYMPH NODES: No evidence for lymphadenopathy. SOFT TISSUE/ABDOMINAL WALL: Small fat filled umbilical hernia. Small fat filled left inguinal hernia. IMPRESSION: 1. Atherosclerotic disease involving abdominal aorta and lower extremity vasculature. Long segment o cclusion of the left superficial femoral artery beginning at its origin with distal reconstitution. O cclusion of the distal right common femoral artery with continued long segment occlusion of the super ficial right femoral artery with distal reconstitution. 2. Three vessels are seen crossing the ankle joints bilaterally. [facility], , 06/18/2024 9:52 PM
[2024-06-18] MEDS ORDERED: ONDANSETRON 4 MG/2 ML VIAL IVP PRN (22:38)
[2024-06-18] MEDS ORDERED: NALOXONE 0.4 MG/ML 1 ML VIAL IV PRN (22:38)
[2024-06-18] MEDS: HYDROmorphone 0.5 MG/0.5 ML SYRINGE IVP STA (22:53)
[2024-06-18] MEDS: HEPARIN SODIUM 1,000 UN/ML (10ML VL) IV ONE (22:55)
[2024-06-18] MEDS: HEPARIN SOD,PORK IN 0.45% NACL 25,000 UNIT in 0.45% NACL 1 250ML.BAG IV SCH (22:55)
[2024-06-19] MEDS ORDERED: DEXTROSE 50% SYRINGE 50 ML IVP PRN ×2 (00:19)
--- NOTE | 2024-06-19 01:14 | P.HPIM ---
History of Present Illness H&P Date: 06/18/24 Patient is a 64-year-old female with hypertension, COPD (no home oxygen), diabetes, CAD with stent placement, PAD and nicotine dependence here for evaluation of increasing left leg pain. Patient reported that she has been having worsening of her left lower extremity aching pain, 10/10 maximum, worse with activity not relieved with rest, over the past 3-4 days which began in her upper thigh and has spread down to her toes. She also reported that her right leg also has aching pain 5-6/10 at maximum, nonrading worse with activity but relieved with rest. She was evaluated at [facility] yesterday evening and was diagnosed with severe arterial disease of the left lower extremity via ultrasound. She was advised to follow-up with Dr. Charles tomorrow for stent placement however due to the pain she decided to seek care. She denied chest pain, shortness of breath, extremity swelling, calf pain, palpitations, dizziness, focal weakness, recent illness, recent travel, recent trauma or fall or recent hospitalization. On admission: Vitals: [place] 87, RR 20, BP 138/78, O2 saturation 93% on room air, temp 98.3 F Labs: WBC 10.9, hemoglobin 14.8, sodium 137, potassium 4.1, chloride 104, bicarb 25, BUN 22, creatinine 0.91, glucose 184, calcium 9.6, liver enzymes within normal limits, coagulation panel within normal limits. Imaging: EKG independently interpreted showed sinus rhythm with a rate of 75, normal axis, no ST-T changes, inverted T waves noted in leads I, II, III, aVF, V5 and V6, QTc 438 MS. Lower extremity CTA bilaterally showed atherosclerotic disease involving the abdominal aorta and lower extremity vasculature Long segment occlusion of the left superficial femoral artery at its origin with distal reconstitution, occlusion of the right distal common femoral artery with continued long segment occlusion of the superficial right femoral artery with distal reconstitution. ED documentation reviewed. Heparin drip initiated in the ED. Pain control with Dilaudid given in the ED. Review of systems: Pertinent positives and negatives as discussed in HPI, a complete review of systems was performed and all other systems are negative. Social history: Tobacco: Current smoker of 40 years 1/2ppd. Not ready to quit. Alcohol: denied history of alcohol use Recreational drugs: denied history with recreational or illicit drug use Travel: no recent prolonged travel Occupation: none Physical examination: Vital signs reviewed General: non toxic, no distress, appears at stated age, room air Derm: no unusual rashes/lesions, warm Head: atraumatic, normocephalic, symmetric Eyes: EOMI, anicteric sclera, pupils equal round reactive to light ENT: Nose and ears atraumatic Neck: No cervical lymphadenopathy, trachea midline, supple Mouth: no lip lesion, mucus membranes moist Cardiovascular: S1S2 reg, no murmur Lungs: Bibasilar fine rales, no accessory muscle use Abdominal: soft, nondistended, nontender to palpation, no guarding Ext: muscle strength 5 out of 5 in all 4 extremities grossly, no gross muscle atrophy, no contractures, positive dorsalis pedis pulse bilateral, no edema, pain on palpation of calf and dorsiflexion of foot, bilateral lower extremities pale Neuro: CN II-XI grossly intact, no gross focal neuro deficits Psych: Alert and oriented x 3, appropriate affect and mood Assessment/Plan: 64-year-old female with COPD not on home oxygen, diabetes, CAD with stent placement and PAD here for evaluation of left lower and right lower extremity pain. Found to have atherosclerotic disease involving the left superficial femoral artery and right distal common femoral artery concerning for PAD. Found to have hyperglycemia on labs. The patient is admitted with an anticipated greater than 2 midnight stay for evaluation of PAD. Active: #. Peripheral artery disease of the left superficial femoral artery and the right distal common femoral artery - Lower extremity CTA bilaterally showed atherosclerotic disease involving the abdominal aorta and lower extremity vasculature Long segment occlusion of the left superficial femoral artery at its origin with distal reconstitution, occlusion of the right distal common femoral artery with continued long segment occlusion of the superficial right femoral artery with distal reconstitution. - Cardiac monitoring - Supplemental oxygen as needed - Continue with heparin drip - Aspirin 81mg daily - Lipitor 40mg daily - Consult vascular surgery #. Leukocytosis, likely reactive -Patient hemodynamically stable and is afebrile - Will monitor CBC #. Diabetes mellitus with hyperglycemia - Serum glucose 184 on admission - Hemoglobin A1c 8.8 on March 2023. Check A1c -Hold home medications -Glucose Accu-Cheks ACHS -Initiate Insulin sliding scale ACHS -Monitor for hypoglycemia Chronic Conditions: #. Hypertension #. COPD #. CAD with stent placement #. Nicotine dependence -Resume home medications once reconciled -Counseled on benefits of smoking cessation particularly in the setting of PAD F: Oral intake E: Monitor electrolytes and glucose N: Heart healthy diet A: Ambulate as tolerated DVT ppx: Heparin drip CODE STATUS: Full Discussed with: Patient Anticipated discharge place: Home Jessy Lemons MD PGY-1 Internal Medicine Dictation was produced using [employer] dictation software. please excuse any grammatical, word or spelling errors. I have seen and evaluated the patient today. I Discussed the case with the resident and agree with the resident's findings I edited the assessment and plan as necessary as documented in the resident's note. Past Medical History Past Medical History: Hypertension Additional Past Medical History / Comment(s): back pain History of Any Multi-Drug Resistant Organisms: None Reported Past Surgical History: Cholecystectomy, Orthopedic Surgery, Tubal Ligation Past Psychological History: No Psychological Hx Reported Past Alcohol Use History: None Reported Past Drug Use History: None Reported Medications and Allergies Home Medications Medication Instructions Recorded Confirmed Type Hydrocodone/Acetaminophen [[place] 1 tab PO TID PRN 10/04/14 01/29/23 History 10-325] Albuterol Inhaler [Ventolin Hfa 1 - 2 puff INHALATION RT-Q6H PRN 01/29/23 01/29/23 History Inhaler] LORazepam [Ativan] 1 mg PO DIRECTED 01/29/23 01/29/23 History Levothyroxine Sodium [Synthroid] 125 mcg PO DAILY 01/29/23 01/29/23 History amLODIPine [Norvasc] 10 mg PO DAILY 01/29/23 01/29/23 History sitaGLIPtin [Januvia] 100 mg PO DAILY 01/29/23 01/29/23 History Aspirin 81 mg PO DAILY #30 tab 01/30/23 Rx Atorvastatin [Lipitor] 80 mg PO HS #30 tab 01/30/23 Rx Famotidine [Pepcid] 20 mg PO BID #60 tab 01/30/23 Rx Insulin NPH Human Isophane 15 unit SQ AC-BRKFST #0 01/30/23 01/29/23 Rx [humuLIN N Kwikpen] Insulin NPH Human Isophane 40 unit SQ AC-SUPPER #0 01/30/23 01/29/23 Rx [humuLIN N Kwikpen] Metoprolol Tartrate [Lopressor] 25 mg PO BID #60 tab 01/30/23 Rx Prasugrel [Effient] 10 mg PO DAILY #30 tab 01/30/23 Rx lisinopriL [Zestril] 5 mg PO BID #60 tab 01/30/23 Rx Allergies Allergy/AdvReac Type Severity Reaction Status Date / Time codeine Allergy Unknown Verified 06/18/24 18:58 Physical Exam Vitals: Vital Signs Temp Pulse Resp BP Pulse Ox 06/18/24 23:00 85 22 154/61 94 L 06/18/24 20:00 88 22 145/71 94 L 06/18/24 19:55 78 26 H 155/75 93 L 06/18/24 18:56 98.3 F 87 20 138/78 93 L Intake and Output 06/18/24 06/18/24 06/19/24 14:59 22:59 06:59 Other: Weight 102.058 kg Results CBC & Chem 7: 06/18/24 20:32 06/18/24 20:32 Labs: Abnormal Lab Results - Last 24 Hours (Table) 06/18/24 06/18/24 Range/Units 20:32 20:32 WBC 10.91 H (4.50-10.00) 10*3/uL RBC 5.33 H (4.10-5.20) 10*6/uL Hct 46.5 H (37.2-46.3) % MCHC 31.8 L (32.0-37.0) g/dL Monocytes # 1.02 H (0.20-1.00) 10*3/uL BUN 22 H (7-17) mg/dL Glucose 184 H (74-99) mg/dL
[2024-06-19] MEDS: ATORVASTATIN 40 MG TAB PO STA (02:03)
[2024-06-19 02:04] LABS: Glucose,Whole Blood 252 mg/dL (70-110)
[2024-06-19] MEDS: HYDROmorphone 0.5 MG/0.5 ML SYRINGE IVP PRN (02:04)
[2024-06-19 06:16] LABS: Basophils # (A) 0.06 10*3/uL (0.00-0.10); Basophils % (A) 0.7 %; Eosinophils # (A) 0.23 10*3/uL (0.04-0.35); Eosinophils % (A) 2.5 %; HCT 50.9 % (37.2-46.3); HGB 15.6 g/dL (12.0-15.0); Lymphocytes # (A) 2.78 10*3/uL (0.90-5.00); Lymphocytes % (A) 30.5 %; MCH 27.3 pg (27.0-32.0); MCHC 30.6 g/dL (32.0-37.0); MCV 89.1 fL (80.0-97.0); Mean Platelet Volume 9.6 fL (9.5-12.2); Monocytes # (A) 0.73 10*3/uL (0.20-1.00); Neutrophils # (A) 5.26 10*3/uL (1.80-7.70); Neutrophils % (A) 57.8 %; Platelet Count 280 10*3/uL (140-440); RBC 5.71 10*6/uL (4.10-5.20); RDW 15.2 % (11.5-14.5); WBC 9.11 10*3/uL (4.50-10.00)
[2024-06-19 06:36] LABS: INR 0.9 (<1.2); Partial Thromboplastin Time 26.5 sec (22.0-30.0); Prothrombin Time 10.4 sec (10.0-12.5)
[2024-06-19] MEDS: HEPARIN SODIUM 1,000 UN/ML (10ML VL) IV PRN (06:58)
[2024-06-19 08:07] LABS: Glucose,Whole Blood 136 mg/dL (70-110)
[2024-06-19] MEDS: INSULIN LISPRO (HumaLOG) 100 UNIT/ML 10 mL VL SQ SCH (08:07)
[2024-06-19] MEDS: ASPIRIN 81 MG PO SCH (09:01)
[2024-06-19] MEDS: DAPAGLIFLOZIN PROPANEDIOL 10 MG TABLET PO SCH (09:34)
[2024-06-19] MEDS: amLODIPine 10 MG TAB PO SCH (09:34)
[2024-06-19] MEDS: LEVOTHYROXINE 125 MCG TAB PO SCH (09:34)
[2024-06-19] MEDS: METOPROLOL TARTRATE 25 MG TAB PO SCH (09:35)
[2024-06-19] MEDS: lisinopriL 10 MG TAB PO SCH (09:35)
[2024-06-19] MEDS: LINAGLIPTIN 5 MG TABLET PO SCH (09:35)
[2024-06-19] MEDS: PRASUGREL 10 MG TAB PO SCH (09:42)
[2024-06-19] MEDS: ERYTHROMYCIN 5 MG/GM OPHTH OINT 3.5 GM TUBE RIGHT EYE SCH (09:43)
[2024-06-19 12:18] LABS: Glucose,Whole Blood 109 mg/dL (70-110)
--- NOTE | 2024-06-19 14:07 | P.PN ---
Subjective Progress Note Date: 06/19/24 Hospital course: Patient is a pleasant 64-year-old female with a past medical history of CAD status post stenting, hypertension, hyperlipidemia, PAD, COPD with continued nicotine dependence not home oxygen dependent, and insulin-dependent diabetes mellitus. She presented to the emergency department on 06/18/2024 secondary to left lower extremity pain. Patient has known occlusive peripheral arterial disease and was recently evaluated at [facility] with his severe arterial disease of the left lower extremity via ultrasound and was scheduled to follow-up outpatient with Dr. Charles for outpatient stent placement however patient reports pain progressively worsened so she came to the emergency department for evaluation. Upon arrival to our facility, patient underwent evaluation in the ER. Vital signs upon arrival show blood pressure 138/78, heart rate 87, respiratory rate 20, temp 98.3 F, and SpO2 of 93% on room air. EKG was completed showing normal sinus rhythm at 75 bpm with T wave inversion in lateral leads II, III, aVL, V5 and V6 (T wave inversion unchanged from previous EKG completed 01/30/2023 upon personal review and interpretation). Labs completed and reviewed. CBC showing leukocytosis with WBC count of 10.91 and elevated hematocrit of 46.5. Coagulation profile normal findings. BMP showing mild prerenal azotemia with BUN of 22 and hyperglycemia with blood glucose of 184. Calcium normal findings at 9.6. Liver profile unremarkable. CTA bilateral lower extremities completed showing atherosclerotic disease involving the abdominal aorta and lower extremity vasculature with long segment occlusion of the left superficial femoral artery beginning at its origin with distal reconstitution and occlusion of the right distal common femoral artery with continued long segment occlusion of the superficial right femoral artery with distal reconstitution and 3 vessels are reported to be crossing the ankle joints bilaterally. Patient was started on high intensity heparin infusion and admitted under our services with consultation to vascular surgery. Physical exam: Patient seen and fully evaluated at bedside. RN just completed obtaining pulses via Doppler and marking posterior tibial pulses with pen marker. Patient reports continued uncontrolled pain of left lower extremity despite IV heparin infusion and IV pain medication regimen. Patient also noted to have diffuse expiratory wheezes upon assessment, she denies shortness of breath but does admit to smoking around half a pack or so of cigarettes daily. Patient denies having any chest pain, palpitations, shortness of breath, dizziness, lightheadedness, or any other complaints. Vital signs reviewed and stable. General: Nontoxic, no distress and appears stated age. Derm: Skin warm and dry, normal coloration for ethnicity. Head: Atraumatic, normocephalic and symmetric. Eyes: EOM's intact, no lid lag, and anicteric sclera Mouth: no lip lesions, mucus membranes moist Cardiovascular: regular rate and rhythm with normal S1S2, no obvious murmur. Lungs: Respirations even, regular, and unlabored on 2 L O2 via nasal cannula. Lungs diminished with diffuse expiratory wheezes, no rhonchi, no rales, and no crackles noted.. Abdominal: soft, nontender to palpation, no guarding, no appreciable organomegal y Ext: No gross muscle atrophy, no edema, no contractures. Movement and sensation intact. Neuro: Speech clear, face symmetrical and CN II-XII grossly intact with no noted focal neuro deficits Psych: Alert and oriented to person, place, time, and situation. Appropriate and pleasant affect. Assessment and Plan of Care: Preoperative clearance -NSQIP surgical risk calculator completed and secondary to patient's multiple comorbidities, she is at increased risk for serious complication at 21.7% with average risk being 17.5%, increased risk of cardiac complication at 2.2% with average risk being 1.9%, and increased risk of at 1% with average risk being of 0.9%. -Patient is at an increased risk to undergo any surgical procedures secondary to her multiple comorbidities including CAD, COPD with continued nicotine dependence, and insulin-dependent diabetes melitis with most recent hemoglobin A1c of 8.8%.. Recommend obtaining preoperative CXR due to wheezing and echocardiogram to ensure no worsening of ejection fraction as previous ejection fraction was 45 to 50% on 01/29/2023. Pending these results, patient is otherwise medically optimized to undergo peripheral revascularization surgery/bypass with Dr. Charles with no absolute contraindications. -Recommend continuous telemetry monitoring throughout perioperative period and continuation of NovoLog sliding scale in addition to patient's home insulin regimen to maintain tight glycemic control throughout perioperative period. Occlusive Peripheral artery disease of the left superficial femoral artery and the right distal common femoral artery -CTA bilateral lower extremities completed showing atherosclerotic disease involving the abdominal aorta and lower extremity vasculature with long segment occlusion of the left superficial femoral artery beginning at its origin with distal reconstitution and occlusion of the right distal common femoral artery with continued long segment occlusion of the superficial right femoral artery with distal reconstitution and 3 vessels are reported to be crossing the ankle joints bilaterally. -Vascular surgery following, discussed plan of care with Dr. Charles. Requesting medical clearance this patient may require femoropopliteal bypass. -Continue high intensity heparin infusion with close monitoring of PTT for goal therapeutic range of 45 to 79 seconds. Currently subtherapeutic at 26.5. Increased rate of heparin infusion from 10 mL/h to 13 mL/h or 12.798 units/kg/h. -Telemetry monitoring -Symptomatic care and pain management with Tylenol 650 mg p.o. every 6 hours as needed for mild pain, Dilaudid 0.5 mg every 3 hours as needed for moderate to severe pain -Continue aspirin 81 mg daily, atorvastatin 40 mg daily, and Effient 10 mg daily. - Patient to remain on continuous telemetry monitoring. CBC to be monitored closely with daily labs while patient remains on heparin infusion. Insulin-dependent diabetes mellitus with hyperglycemia - Continue home medication regimen with lispro 35 units twice daily, NPH 13 units subcu twice daily with meals, and patient placed on glycemic protocol with Humalog sliding scale to main tight glycemic control throughout hospitalization. Follow-up on repeat hemoglobin A1c as previous hemoglobin A1c was 8.8% in January. Hypertension - Monitor vital signs and continue daily medication regimen with amlodipine 10 mg daily, lisinopril 10 mg daily, and metoprolol 25 mg twice daily. History of CAD status post stenting - Continue cardiac medication regimen with aspirin 81 mg daily, atorvastatin 40 mg nightly, Effient 10 mg daily, Farxiga 10 mg daily, lisinopril 10 mg daily, and metoprolol 25 mg twice daily. COPD, not in acute exacerbation - Patient to be provided with supplemental oxygen if/as needed to maintain SpO2 equal to or greater than 92%. -Patient placed on DuoNebs scheduled 3 times daily and as needed for wheezing/shortness of breath. Nicotine dependence - Educated patient on the benefits of smoking cessation and risks of continued use. Recommend stopping smoking. Order placed for nicotine patch 14 mg daily. Leukocytosis, resolved Data and imaging reviewed: Vital signs reviewed. Blood pressure 164/79, heart rate 92, respiratory rate 20, temp 97.6 F, and SpO2 of 98% on 2 L. .Morning labs reviewed. CBC showing elevated hemoglobin of 15.6 and hematocrit of 50.9. Coagulation profile showing subtherapeutic PTT of 26.5, and blood glucose of 136. CODE STATUS: Full code DVT prophylaxis: Heparin infusion Discussed with: Patient, RN, and vascular surgeon Anticipated discharge date: Pending clinical course Anticipated discharge place: Home Patient was seen independently by Nurse Pracitioner. This document was prepared using [employer] dictation software. Please allow for errors in undercar specialist, while rare they do occur. Rob Martinez BRAND LEAD rendered care for this patient independently, reviewed the findings and plan as documented in the note above and agree with plan. I did not physically speak with or examine the patient on this date. Objective - Vital Signs Vital signs: Vital Signs Temp 97.6 F 06/19/24 05:42 Pulse 92 06/19/24 07:28 Resp 20 06/19/24 07:28 BP 164/79 06/19/24 07:28 Pulse Ox 98 06/19/24 07:28 FiO2 Intake & Output 06/18/24 06/19/24 06/19/24 18:59 06:59 18:59 Intake Total 80.333 Balance 80.333 Weight 102.058 kg Intake: Intake, IV Titration 80.333 Amount Heparin Sod,Pork in 0.45% 80.333 NaCl 25,000 unit In 0.45 % NaCl 1 250ml.bag @ 9. 798 UNITS/KG/HR 10 mls/hr IV .Q24H [facility] Rx#: [id number] - Labs CBC & Chem 7: 06/19/24 05:31 06/18/24 20:32 Labs: Abnormal Lab Results - Last 24 Hours (Table) 06/18/24 06/18/24 06/19/24 Range/Units 20:32 20:32 02:02 WBC 10.91 H (4.50-10.00) 10*3/uL RBC 5.33 H (4.10-5.20) 10*6/uL Hgb (12.0-15.0) g/dL Hct 46.5 H (37.2-46.3) % MCHC 31.8 L (32.0-37.0) g/dL Immature Gran # (0.00-0.04) 10*3/uL Monocytes # 1.02 H (0.20-1.00) 10*3/uL BUN 22 H (7-17) mg/dL Glucose 184 H (74-99) mg/dL POC Glucose (mg/dL) 252 H (70-110) mg/dL 06/19/24 06/19/24 Range/Units 05:31 08:05 WBC (4.50-10.00) 10*3/uL RBC 5.71 H (4.10-5.20) 10*6/uL Hgb 15.6 H (12.0-15.0) g/dL Hct 50.9 H (37.2-46.3) % MCHC 30.6 L (32.0-37.0) g/dL Immature Gran # 0.05 H (0.00-0.04) 10*3/uL Monocytes # (0.20-1.00) 10*3/uL BUN (7-17) mg/dL Glucose (74-99) mg/dL POC Glucose (mg/dL) 136 H (70-110) mg/dL
[2024-06-19] MEDS ORDERED: ACETAMINOPHEN TAB 325 MG TAB PO PRN (14:58)
[2024-06-19] MEDS ORDERED: IPRATROPIUM-ALBUTEROL 3 ML NEB INHALATION PRN (15:02)
[2024-06-19] MEDS: INSULIN NPL/INSULIN LISPRO 100 UNIT/ML 10 ML VL (Humalog 75/25) SQ SCH (15:38)
--- NOTE | 2024-06-19 16:18 | P.GSCN ---
History of Present Illness Consult date: 06/19/24 History of present illness: Patient is a 64-year-old female with multiple medical comorbidities and chronic tobacco abuse who presented to the hospital for increasing left lower extremity pain. States the pain is more in her hip and in her thigh. She does not really have any way of getting comfortable. She denies any significant motor or sensation changes of her foot. She has had chronic peripheral arterial disease for many years but in the past few days has had increasing discomfort and left lower extremity pain. She states that nothing seems to make it better. It is in her buttock hip and now down into her thigh and working its way down the leg. She has something similar on the right side but not radiating and relieved with rest. She does have evidence again of severe peripheral arterial disease and was close follow-up as an outpatient but was in the hospital instead. She denies any chest pain shortness of breath or other issues. She does have a history of back issues that she is aware of she has been on a heparin drip since admission without any significant changes in her discomfort or pain Past Medical History Past Medical History: Hypertension Additional Past Medical History / Comment(s): back pain History of Any Multi-Drug Resistant Organisms: None Reported Past Surgical History: Cholecystectomy, Orthopedic Surgery, Tubal Ligation Past Psychological History: No Psychological Hx Reported Past Alcohol Use History: None Reported Past Drug Use History: None Reported Medications and Allergies Home Medications Medication Instructions Recorded Confirmed Type Hydrocodone/Acetaminophen [Bradford 1 tab PO TID PRN 10/04/14 06/19/24 History 10-325] Levothyroxine Sodium [Synthroid] 125 mcg PO DAILY 01/29/23 06/19/24 History amLODIPine [Norvasc] 10 mg PO DAILY 01/29/23 06/19/24 History sitaGLIPtin [Januvia] 100 mg PO DAILY 01/29/23 06/19/24 History Metoprolol Tartrate [Lopressor] 25 mg PO BID #60 tab 01/30/23 06/19/24 Rx Prasugrel [Effient] 10 mg PO DAILY #30 tab 01/30/23 06/19/24 Rx Aspirin EC [Ecotrin Low Dose] 81 mg PO DAILY 06/19/24 06/19/24 History Atorvastatin [Lipitor] 40 mg PO HS 06/19/24 06/19/24 History Dapagliflozin Propanediol [Farxiga] 10 mg PO DAILY 06/19/24 06/19/24 History Erythromycin Ophth Oint [Romycin 1 applic RIGHT EYE BID 06/19/24 06/19/24 History Ophth Oint] Insulin NPH Hum/Reg Insulin Hm 35 unit SQ BID-W/MEALS 06/19/24 06/19/24 History [NovoLIN 70-30 100 Unit/ml Vial] Insulin NPH Human Isophane 13 units SQ AC-BID 06/19/24 06/19/24 History [NovoLIN N Flexpen] lisinopriL [Zestril] 10 mg PO DAILY 06/19/24 06/19/24 History Allergies Allergy/AdvReac Type Severity Reaction Status Date / Time codeine Allergy Unknown Verified 06/19/24 07:08 Surgical - Exam Vital Signs Temp Pulse Resp BP Pulse Ox 98.3 F 87 20 138/78 93 L 06/18/24 18:56 06/18/24 18:56 06/18/24 18:56 06/18/24 18:56 06/18/24 18:56 Constitutional: No acute distress, pleasant, Eyes: Anicteric sclerae, moist conjunctiva, no lid-lag HENMT: Normocephalic / Atraumatic Oropharynx clear, poor dentition Neck: Supple, full range of motion, nontender, no masses Lungs: Normal respiratory effort, no accessory muscle use Cardiovascular: Heart regular in rate and rhythm Abdominal: Soft, Nontender, nondistended, obese Skin: Normal temperature, tone, texture, turgor. No rashes Extremities: No digital cyanosis No clubbing. Vascular: Motor sensor intact to the bilateral lower extremities, bilateral feet are warm and dry Psychiatric: AOx3 Neuro: Cranial nerves II-XII grossly intact Results - Labs 06/19/24 05:31 06/18/24 20:32 Abnormal Lab Results - Last 24 Hours (Table) 06/18/24 06/18/24 06/19/24 Range/Units 20:32 20:32 02:02 WBC 10.91 H (4.50-10.00) 10*3/uL RBC 5.33 H (4.10-5.20) 10*6/uL Hgb (12.0-15.0) g/dL Hct 46.5 H (37.2-46.3) % MCHC 31.8 L (32.0-37.0) g/dL Immature Gran # (0.00-0.04) 10*3/uL Monocytes # 1.02 H (0.20-1.00) 10*3/uL APTT (22.0-30.0) sec BUN 22 H (7-17) mg/dL Glucose 184 H (74-99) mg/dL POC Glucose (mg/dL) 252 H (70-110) mg/dL 06/19/24 06/19/24 06/19/24 Range/Units 05:31 08:05 12:41 WBC (4.50-10.00) 10*3/uL RBC 5.71 H (4.10-5.20) 10*6/uL Hgb 15.6 H (12.0-15.0) g/dL Hct 50.9 H (37.2-46.3) % MCHC 30.6 L (32.0-37.0) g/dL Immature Gran # 0.05 H (0.00-0.04) 10*3/uL Monocytes # (0.20-1.00) 10*3/uL APTT 36.1 H (22.0-30.0) sec BUN (7-17) mg/dL Glucose (74-99) mg/dL POC Glucose (mg/dL) 136 H (70-110) mg/dL Diabetes panel 06/18/24 Range/Units 20:32 Sodium 137 (137-145) mmol/L Potassium 4.1 (3.5-5.1) mmol/L Chloride 104 (98-107) mmol/L Carbon Dioxide 25 (22-30) mmol/L BUN 22 H (7-17) mg/dL Creatinine 0.91 (0.52-1.04) mg/dL Glucose 184 H (74-99) mg/dL Calcium 9.6 (8.4-10.2) mg/dL AST 16 (14-36) U/L ALT 14 (4-34) U/L Alkaline Phosphatase 98 (38-126) U/L Total Protein 6.8 (6.3-8.2) g/dL Albumin 3.9 (3.5-5.0) g/dL Calcium panel 06/18/24 Range/Units 20:32 Calcium 9.6 (8.4-10.2) mg/dL Albumin 3.9 (3.5-5.0) g/dL Pituitary panel 06/18/24 Range/Units 20:32 Sodium 137 (137-145) mmol/L Potassium 4.1 (3.5-5.1) mmol/L Chloride 104 (98-107) mmol/L Carbon Dioxide 25 (22-30) mmol/L BUN 22 H (7-17) mg/dL Creatinine 0.91 (0.52-1.04) mg/dL Glucose 184 H (74-99) mg/dL Calcium 9.6 (8.4-10.2) mg/dL Adrenal panel 06/18/24 Range/Units 20:32 Sodium 137 (137-145) mmol/L Potassium 4.1 (3.5-5.1) mmol/L Chloride 104 (98-107) mmol/L Carbon Dioxide 25 (22-30) mmol/L BUN 22 H (7-17) mg/dL Creatinine 0.91 (0.52-1.04) mg/dL Glucose 184 H (74-99) mg/dL Calcium 9.6 (8.4-10.2) mg/dL Total Bilirubin 0.5 (0.2-1.3) mg/dL AST 16 (14-36) U/L ALT 14 (4-34) U/L Alkaline Phosphatase 98 (38-126) U/L Total Protein 6.8 (6.3-8.2) g/dL Albumin 3.9 (3.5-5.0) g/dL Assessment and Plan Assessment: Left hip/buttock/back pain Left thigh pain Bilateral lower extremity severe peripheral arterial disease with iliofemoral and femoral-popliteal occlusive disease, chronic Diabetes COPD Plan: Long discussion was had the patient I personally reviewed the images from the CT scan. She does have evidence of right common femoral, superficial femoral and popliteal disease with reconstitution. On the left she has evidence of iliac stenosis that is moderate in nature as well as superficial femoral artery occlusive disease all appearing chronic in nature. When reviewed, she does have evidence of historic findings of superficial femoral artery disease bilaterally dating back to even 2016. At this point is uncertain of the overall cause of her new change in pain, while it is not possible she has some degree of vascular insufficiency I doubt it seems to be the main cause of her unrelenting pain. Would rule out orthopedic back/hip sources prior to being aggressive with surgical intervention. Patient would need femoral endarterectomy, iliac stent and femoral to popliteal bypass surgery which would be a high risk surgery. I think it is most reasonable to try other methods and see if there is a different source of her pain prior to aggressively intervening in a vascular manner. She seemingly understands the plan overall and is willing to proceed. This was discussed with the medicine team. It is likely not necessary to continue the heparin drip at this time
--- NOTE | 2024-06-19 16:26 | XR ---
EXAMINATION TYPE: XR chest 1V portable DATE OF EXAM: 06/19/2024 4:10 PM COMPARISON: None CLINICAL INDICATION: Female, 64 years old with history of diffuse expiratory wheezes, COPD, pre-op, , FINDINGS: Heart borderline enlarged. Diffuse interstitial opacities and peribronchial cuffing. No cynthia consoli dation or pleural effusion. IMPRESSION: Borderline cardiomegaly with diffuse increased interstitial density. Differential considerations incl ude bronchitis, chronic asthma, and pulmonary vascular congestion. [facility], Workstation: [facility], 06/19/2024 4:24 PM
--- NOTE | 2024-06-19 16:36 | CA ---
Transthoracic Echo Report Name: Christina Harrison Age: 64 Gender: F : 1960 Exam Date: 06/19/2024 10:48 Exam Location: [facility] Ht (in): 68 Wt (lb): 225 Ordering Physician: Rob Martinez Attending/Referring Phys: [employer] Mignon Gordon RDCS Procedure CPT: Indications: pre-op testing for peipheral arterial bypass Cardiac Hx: Technical Quality: Fair Contrast 1: Total Dose (mL): Contrast 2: Total Dose (mL): MEASUREMENTS (Male / Female) Normal Values 2D ECHO LV Diastolic Diameter PLAX 5.9 cm 4.2 - 5.9 / 3.9 - 5.3 cm LV Systolic Diameter PLAX 4.0 cm IVS Diastolic Thickness 1.4 cm 0.6 - 1.0 / 0.6 - 0.9 cm LVPW Diastolic Thickness 1.4 cm 0.6 - 1.0 / 0.6 - 0.9 cm LV Relative Wall Thickness 0.5 RV Internal Dim ED PLAX 3.5 cm LV Diastolic Volume MOD BP 130.8 cm??? 67 - 155 / 56 - 104 cm??? LV Systolic Volume MOD BP 64.4 cm??? 22 - 58 / 19 - 49 cm??? LV Ejection Fraction MOD BP 50.7 % >= 55 % LV Cardiac Index MOD BP 1770.0 cm???/min???m??? LV Diastolic Volume MOD 4C 114.0 cm??? LV Systolic Volume MOD 4C 61.9 cm??? LV Ejection Fraction MOD 4C 45.7 % LV Cardiac Index MOD 4C 1389.4 cm???/min???m??? LV Diastolic Length 4C 7.8 cm LV Systolic Length 4C 5.7 cm LV Diastolic Volume MOD 2C 138.3 cm??? LV Systolic Volume MOD 2C 56.4 cm??? LV Ejection Fraction MOD 2C 59.2 % LV Cardiac Index MOD 2C 2184.0 cm???/min???m??? LV Diastolic Length 2C 8.5 cm LV Systolic Length 2C 6.9 cm LA Volume 55.7 cm??? 18 - 58 / 22 - 52 cm??? LA Volume Index 24.8 cm???/m??? 16 - 28 cm???/m??? M-MODE LV Diastolic Diameter MM 6.0 cm 4.2 - 5.9 / 3.9 - 5.3 cm LV Systolic Diameter MM 4.8 cm LV Cardiac Index MM Teich 2026.5 cm???/min???m??? IVS Diastolic Thickness MM 1.4 cm 0.6 - 1.0 / 0.6 - 0.9 cm LVPW Diastolic Thickness MM 1.2 cm 0.6 - 1.0 / 0.6 - 0.9 cm LV Relative Wall Thickness MM 0.4 0.24 - 0.42 / 0.22 - 0.42 LV Mass Index MM 158.1 g/m??? 49 - 115 / 43 - 95 g/m??? Aortic Root Diameter MM 3.5 cm AV Cusp Separation MM 1.6 cm DOPPLER MV Area PHT 3.3 cm??? Mitral E Point Velocity 67.6 cm/s Mitral A Point Velocity 63.7 cm/s Mitral E to A Ratio 1.1 MV Deceleration Time 226.7 ms FINDINGS Left Ventricle Left ventricular ejection fraction is estimated at 40-45 %. Left ventricular cavity size normal. Moderate concentric left ventricular hypertrophy. Severely increased left ventricular mass. Moderately increased septal wall thickness. Mildly increased Moderately decreased fractional shortening. Severely decreased midwall fractional shortening. Moderately increased left ventricular diastolic diameter. Moderately increased left ventricular diastolic volume. Moderately increased left ventricular systolic volume. Mildly increased left ventricular relative wall thickness. Mildly decreased left ventricular ejection fraction. Right Ventricle Right ventricular dilatation. Unable to estimate the right ventricular systolic pressure. Right Atrium Normal right atrial size. No spontaneous contrast in the right atrium. Left Atrium Mildly increased left atrial volume. No left atrial thrombus or mass present. Mitral Valve Structurally normal mitral valve. No mitral stenosis, regurgitation or prolapse. Aortic Valve Trileaflet aortic valve. Thickened aortic valve without stenosis. No aortic regurgitation. Tricuspid Valve Structurally normal tricuspid valve. No tricuspid stenosis, regurgitation or prolapse. Pulmonic Valve Structurally normal pulmonic valve. Trace pulmonic regurgitation. Pericardium No pericardial effusion. Aorta Normal size aortic root and proximal ascending aorta. CONCLUSIONS Left ventricular ejection fraction 40 to 45% Moderately increased left ventricular wall thickness Trace pulmonic regurgitation No pericardial effusion Previewed by: Dr. Dorian Russell DO (Electronically Signed) Final Date: 19 June 2024 16:36
[2024-06-19 17:20] LABS: Glucose,Whole Blood 163 mg/dL (70-110)
[2024-06-19] MEDS: INSULIN NPH 100 UNIT/ML 10 ML VIAL SQ SCH (17:41)
[2024-06-19] MEDS: IPRATROPIUM-ALBUTEROL 3 ML NEB INHALATION SCH (19:37)
[2024-06-19 21:44] LABS: Glucose,Whole Blood 142 mg/dL (70-110)
[2024-06-19] MEDS: ATORVASTATIN 40 MG TAB PO SCH (21:47)
[2024-06-20 05:07] LABS: HCT 46.4 % (37.2-46.3); HGB 14.4 g/dL (12.0-15.0); MCH 27.8 pg (27.0-32.0); MCV 89.6 fL (80.0-97.0); Mean Platelet Volume 9.7 fL (9.5-12.2); Platelet Count 278 10*3/uL (140-440); RBC 5.18 10*6/uL (4.10-5.20); RDW 15.2 % (11.5-14.5); WBC 10.23 10*3/uL (4.50-10.00)
[2024-06-20 05:27] LABS: ALT 19 U/L (4-34); AST 21 U/L (14-36); African American GFR (CKD) 81 (>60 ml/min/1.73 sqM); Albumin 3.5 g/dL (3.5-5.0); Alkaline Phosphatase 132 U/L (38-126); Anion Gap 6 mmol/L; Blood Urea Nitrogen 19 mg/dL (7-17); Calcium 9.2 mg/dL (8.4-10.2); Carbon Dioxide 28 mmol/L (22-30); Chloride 103 mmol/L (98-107); Glucose 138 mg/dL (74-99); Magnesium 2.3 mg/dL (1.6-2.3); Non-African American GFR(CKD) 70 (>60 ml/min/1.73 sqM); Potassium 4.3 mmol/L (3.5-5.1); Sodium 137 mmol/L (137-145); Total Bilirubin 0.4 mg/dL (0.2-1.3); Total Protein 6.2 g/dL (6.3-8.2)
[2024-06-20 06:06] LABS: Glucose,Whole Blood 137 mg/dL (70-110)
[2024-06-20] MEDS: IPRATROPIUM-ALBUTEROL 3 ML NEB INHALATION SCH (08:24)
[2024-06-20] MEDS: NICOTINE 14MG/24HR PATCH TRANSDERM SCH (08:35)
--- NOTE | 2024-06-20 09:52 | US ---
EXAMINATION TYPE: US arterial LE multi level DATE OF EXAM: 06/20/2024 9:28 AM COMPARISONS: US 2015 CLINICAL INDICATION: Female, 64 years old with history of leg pain; TECHNIQUE: Systolic pressures were taken of the upper and lower extremity arteries with ankle-brachia l indices calculated bilaterally. History of: Smoker: No Hypertension: No Diabetic: No Hyperlipidemia: No TIA/CVA: No Previous Vascular Surgery: No KS: No Vascular Ulcers: No Claudication: No Gangrene: No FINDINGS: Doppler Waveforms: Right: Left: Brachial Artery systolic pressure: Right: Deferred due to IV Left: 154 Posterior Tibial artery systolic pressure: Right: 36 Left: 86 Dorsalis Pedis artery systolic pressure: Right: Unable to detect Left: 61 Ankle-Brachial Indices: Right: 0.27 Left: 0.78 IMPRESSION: NELLI: Right: Severe arterial disease. Referred to vascular specialist. Left: Mild arterial disease. [facility], , 06/20/2024 9:50 AM
[2024-06-20 11:24] LABS: Glucose,Whole Blood 148 mg/dL (70-110)
--- NOTE | 2024-06-20 14:46 | P.PN ---
Subjective Progress Note Date: 06/20/24 Hospital Course: Patient is a pleasant 64-year-old female with a past medical history of CAD status post stenting, hypertension, hyperlipidemia, PAD, COPD with continued nicotine dependence not home oxygen dependent, and insulin-dependent diabetes mellitus. She presented to the emergency department on 06/18/2024 secondary to left lower extremity pain. Patient has known occlusive peripheral arterial disease and was recently evaluated at [facility] with his severe arterial disease of the left lower extremity via ultrasound and was scheduled to follow-up outpatient with Dr. Charles for outpatient stent placement however patient reports pain progressively worsened so she came to the emergency department for evaluation. Upon arrival to our facility, patient underwent evaluation in the ER. Vital signs upon arrival show blood pressure 138/78, heart rate 87, respiratory rate 20, temp 98.3 F, and SpO2 of 93% on room air. EKG was completed showing normal sinus rhythm at 75 bpm with T wave inversion in lateral leads II, III, aVL, V5 and V6 (T wave inversion unchanged from previous EKG completed 01/30/2023 upon personal review and interpretation). Labs completed and reviewed. CBC showing leukocytosis with WBC count of 10.91 and elevated hematocrit of 46.5. Coagulation profile normal findings. BMP showing mild prerenal azotemia with BUN of 22 and hyperglycemia with blood glucose of 184. Calcium normal findings at 9.6. Liver profile unremarkable. CTA bilateral lower extremities completed showing atherosclerotic disease involving the abdominal aorta and lower extremity vasculature with long segment occlusion of the left superficial femoral artery beginning at its origin with distal reconstitution and occlusion of the right distal common femoral artery with continued long segment occlusion of the superficial right femoral artery with distal reconstitution and 3 vessels are reported to be crossing the ankle joints bilaterally. Patient was started on high intensity heparin infusion and admitted under our services with consultation to vascular surgery. Subjective: Patient seen and examined at bedside. No acute events overnight. Left calf pain still about the same compared to yesterday. Denies chest pain, shortness of breath, nausea, vomiting. Pertinent positives and negatives as discussed above, a complete review of sys tems was performed and all other systems are negative. Vitals: Signs Reviewed Physical Exam: General: nontoxic, no distress, appears at stated age Derm: warm, dry, intact Head: atraumatic, normocephalic, symmetric Eyes: EOMI, anicteric sclera Mouth: no lip lesion, mucus membranes moist Cardiovascular: S1 S2 reg, no murmur, rubs, or gallops Lungs: CTA bilateral, no rhonchi, no rales, no accessory muscle use Abdominal: soft, non-tender to palpataion, no appreciable organomegaly Extremities: no gross muscle atrophy, no edema, no contractures, left calf tender to palpation with no swelling, erythema, discoloration Neuro: Alert, Oriented, CNII-XII grossly intact, gait normal Psych: well appearing, appropriate affect Data Received Today: Pertinent Labs: WBC 10.23, hemoglobin 14.4, hematocrit 46.4, platelet 278, sodium 137, potassium 4.3, BUN 19, creatinine 0.87, glucose 138 Vitals: Temperature 97.9, pulse rate 58, respiratory rate 16, blood pressure 135/70, O2 sat 92% on room air Imaging: Chest x-ray on 06/19/2024 showed borderline cardiomegaly with diffuse increased interstitial density. Differential considerations include bronchitis, chronic asthma, and pulmonary vascular congestion Lower extremity ultrasound on 06/20/2024 showed severe arterial disease in the right lower extremity and mild arterial disease in the left lower extremity. Assessment and Plan: Occlusive Peripheral artery disease of the left superficial femoral artery and the right distal common femoral artery Left hip pain -CTA bilateral lower extremities completed showing atherosclerotic disease involving the abdominal aorta and lower extremity vasculature with long segment occlusion of the left superficial femoral artery beginning at its origin with distal reconstitution and occlusion of the right distal common femoral artery with continued long segment occlusion of the superficial right femoral artery with distal reconstitution and 3 vessels are reported to be crossing the ankle joints bilaterally. -Lower extremity ultrasound on 06/20/2024 showed severe arterial disease in the right lower extremity and mild arterial disease in the left lower extremity. - Discussed plan of care with Dr. Charles. Will workup for orthopedic related cause of left lower extremity pain since the 6-hour vascular hyper procedure consisting of a femoral endarterectomy, iliac stent and femoral to popliteal bypass surgery would be a high risk. -Order x-ray of left hip and x-ray of lumbosacral region -Consult orthopedic surgery -Discontinue IV heparin for now -Telemetry monitoring -Symptomatic care and pain management with Tylenol 650 mg p.o. every 6 hours as needed for mild pain, Dilaudid 0.5 mg every 3 hours as needed for moderate to severe pain -Continue aspirin 81 mg daily, atorvastatin 40 mg daily, and Effient 10 mg daily. -Monitor morning CBC. Insulin-dependent diabetes mellitus with hyperglycemia - Previous hemoglobin A1c was 8.8% in January - Hemoglobin A1c obtained this time was 7.8 - Continue sliding scale insulin - Continue Humalog 35 units SQ twice daily - Discontinue NPH insulin Hypertension - Monitor vital signs and continue daily medication regimen with amlodipine 10 mg daily, lisinopril 10 mg daily, and metoprolol 25 mg twice daily. History of CAD status post stenting - Continue cardiac medication regimen with aspirin 81 mg daily, atorvastatin 40 mg nightly, Effient 10 mg daily, Farxiga 10 mg daily, lisinopril 10 mg daily, and metoprolol 25 mg twice daily. COPD, not in acute exacerbation - Patient to be provided with supplemental oxygen if/as needed to maintain SpO2 equal to or greater than 92%. -Patient placed on DuoNebs scheduled 3 times daily and as needed for wheezi ng/shortness of breath. Nicotine dependence - Educated patient on the benefits of smoking cessation and risks of continued use. Recommend stopping smoking. Order placed for nicotine patch 14 mg daily. Leukocytosis -WBC 10.23 - Monitor morning CBC CODE STATUS: Full code DVT prophylaxis: Lovenox 40 mg daily subcu Discussed with: Patient, RN, and vascular surgeon Anticipated discharge date: Pending clinical course Anticipated discharge place: Home I have seen and evaluated the patient today. Discussed with the resident and agree with the residents finding and plan as documented in the resident's note. Changes highlighted in blue font. Objective - Vital Signs Vital signs: Vital Signs Temp 97.7 F 06/19/24 22:53 Pulse 63 06/20/24 03:40 Resp 17 06/20/24 03:40 BP 107/54 06/20/24 03:40 Pulse Ox 93 L 06/20/24 03:40 FiO2 Intake & Output 06/19/24 06/20/24 06/20/24 18:59 06:59 18:59 Intake Total 90.774 648.092 Balance 90.774 648.092 Weight 96.3 kg Intake: Intake, IV Titration 90.774 108.092 Amount Heparin Sod,Pork in 0.45% 90.774 108.092 NaCl 25,000 unit In 0.45 % NaCl 1 250ml.bag @ 9. 798 UNITS/KG/HR 10 mls/hr IV .Q24H [facility] Rx#: [id number] Oral 540 Other: Voiding Method Toilet # Voids 2 - Labs CBC & Chem 7: 06/20/24 03:59 06/20/24 03:59 Labs: Abnormal Lab Results - Last 24 Hours (Table) 06/19/24 06/19/24 06/19/24 Range/Units 08:05 12:41 17:19 WBC (4.50-10.00) 10*3/uL Hct (37.2-46.3) % MCHC (32.0-37.0) g/dL APTT 36.1 H (22.0-30.0) sec BUN (7-17) mg/dL Glucose (74-99) mg/dL POC Glucose (mg/dL) 136 H 163 H (70-110) mg/dL Alkaline Phosphatase (38-126) U/L Total Protein (6.3-8.2) g/dL 06/19/24 06/19/24 06/20/24 Range/Units 19:52 21:42 03:59 WBC 10.23 H (4.50-10.00) 10*3/uL Hct 46.4 H (37.2-46.3) % MCHC 31.0 L (32.0-37.0) g/dL APTT 34.2 H (22.0-30.0) sec BUN (7-17) mg/dL Glucose (74-99) mg/dL POC Glucose (mg/dL) 142 H (70-110) mg/dL Alkaline Phosphatase (38-126) U/L Total Protein (6.3-8.2) g/dL 06/20/24 06/20/24 06/20/24 Range/Units 03:59 03:59 06:05 WBC (4.50-10.00) 10*3/uL Hct (37.2-46.3) % MCHC (32.0-37.0) g/dL APTT 43.3 H (22.0-30.0) sec BUN 19 H (7-17) mg/dL Glucose 138 H (74-99) mg/dL POC Glucose (mg/dL) 137 H (70-110) mg/dL Alkaline Phosphatase 132 H (38-126) U/L Total Protein 6.2 L (6.3-8.2) g/dL
--- NOTE | 2024-06-20 16:05 | XR ---
EXAMINATION TYPE: XR lumbosacral spine 5 views, XR Hip Complete 2 views LT DATE OF EXAM: 06/20/2024 3:52 PM COMPARISON: 04/28/2022 CLINICAL INDICATION: Female, 64 years old with history of left hip pain; PHH, pain FINDINGS: Lumbar spine: Gentle levoconvex curvature likely positional. Cholecystectomy clips. Some similar mild degenerative change at the SI joints. Facet arthropathy lower lumbar spine. No pars intra-articular is defect is s een. Mild multilevel degenerative disc disease with bulging discs. Vertebral body heights are preserv ed and alignment is maintained. Left hip: Left hip joint spaces relatively maintained. There is osteopenia. No displaced fractures seen. Pubic symphysis appears intact. IMPRESSION: 1. Lumbar spine: Mild multilevel degenerative disc disease. At least moderate facet arthropathy lower lumbar spine. No vertebral compression collapse or malalignment. 2. Left hip: Osteopenia. No acute osseous abnormality seen. [facility], Workstation: [facility], 06/20/2024 4:03 PM
[2024-06-20 16:39] LABS: Glucose,Whole Blood 138 mg/dL (70-110)
[2024-06-20 20:09] LABS: Glucose,Whole Blood 171 mg/dL (70-110)
[2024-06-20 20:19] LABS: Glucose,Whole Blood 141 mg/dL (70-110)
[2024-06-21 06:16] LABS: Glucose,Whole Blood 138 mg/dL (70-110)
[2024-06-21 06:41] LABS: HCT 44.7 % (37.2-46.3); HGB 14.1 g/dL (12.0-15.0); MCH 27.9 pg (27.0-32.0); MCHC 31.5 g/dL (32.0-37.0); MCV 88.5 fL (80.0-97.0); Mean Platelet Volume 9.5 fL (9.5-12.2); Platelet Count 276 10*3/uL (140-440); RBC 5.05 10*6/uL (4.10-5.20); RDW 15.1 % (11.5-14.5); WBC 9.53 10*3/uL (4.50-10.00)
[2024-06-21 07:04] LABS: ALT 16 U/L (4-34); AST 15 U/L (14-36); African American GFR (CKD) 82 (>60 ml/min/1.73 sqM); Albumin 3.5 g/dL (3.5-5.0); Alkaline Phosphatase 114 U/L (38-126); Anion Gap 6 mmol/L; Blood Urea Nitrogen 19 mg/dL (7-17); Calcium 9.3 mg/dL (8.4-10.2); Carbon Dioxide 29 mmol/L (22-30); Chloride 104 mmol/L (98-107); Glucose 135 mg/dL (74-99); Magnesium 2.2 mg/dL (1.6-2.3); Non-African American GFR(CKD) 71 (>60 ml/min/1.73 sqM); Potassium 4.3 mmol/L (3.5-5.1); Sodium 139 mmol/L (137-145); Total Bilirubin 0.5 mg/dL (0.2-1.3); Total Protein 6.3 g/dL (6.3-8.2)
[2024-06-21 08:44] VITALS: RESP 18
[2024-06-21] MEDS: ENOXAPARIN 40 MG/0.4 ML SYRINGE SQ SCH (08:49)
[2024-06-21 11:24] LABS: Glucose,Whole Blood 186 mg/dL (70-110)
--- NOTE | 2024-06-21 12:19 | P.PN ---
Subjective Progress Note Date: 06/21/24 Hospital Course: Patient is a pleasant 64-year-old female with a past medical history of CAD status post stenting, hypertension, hyperlipidemia, PAD, COPD with continued nicotine dependence not home oxygen dependent, and insulin-dependent diabetes mellitus. She presented to the emergency department on 06/18/2024 secondary to left lower extremity pain. Patient has known occlusive peripheral arterial disease and was recently evaluated at [facility] with his severe arterial disease of the left lower extremity via ultrasound and was scheduled to follow-up outpatient with Dr. Charles for outpatient stent placement however patient reports pain progressively worsened so she came to the emergency department for evaluation. Upon arrival to our facility, patient underwent evaluation in the ER. Vital signs upon arrival show blood pressure 138/78, heart rate 87, respiratory rate 20, temp 98.3 F, and SpO2 of 93% on room air. EKG was completed showing normal sinus rhythm at 75 bpm with T wave inversion in lateral leads II, III, aVL, V5 and V6 (T wave inversion unchanged from previous EKG completed 01/30/2023 upon personal review and interpretation). Labs completed and reviewed. CBC showing leukocytosis with WBC count of 10.91 and elevated hematocrit of 46.5. Coagulation profile normal findings. BMP showing mild prerenal azotemia with BUN of 22 and hyperglycemia with blood glucose of 184. Calcium normal findings at 9.6. Liver profile unremarkable. CTA bilateral lower extremities completed showing atherosclerotic disease involving the abdominal aorta and lower extremity vasculature with long segment occlusion of the left superficial femoral artery beginning at its origin with distal reconstitution and occlusion of the right distal common femoral artery with continued long segment occlusion of the superficial right femoral artery with distal reconstitution and 3 vessels are reported to be crossing the ankle joints bilaterally. Patient was started on high intensity heparin infusion and admitted under our services with consultation to vascular surgery. Subjective: Patient seen and examined at bedside. No acute events overnight. Patient reports that the pain is mostly located in her left knee. Denies fever, chills, chest pain, shortness of breath, nausea or vomiting, diarrhea, constipation, belly pain. Pertinent positives and negatives as discussed above, a complete review of systems was performed and all other systems are negative. Vitals: Signs Reviewed Physical Exam: General: nontoxic, no distress, appears at stated age Derm: warm, dry, intact Head: atraumatic, normocephalic, symmetric Eyes: EOMI, anicteric sclera Mouth: no lip lesion, mucus membranes moist Cardiovascular: S1 S2 reg, no murmur, rubs, or gallops Lungs: CTA bilateral, no rhonchi, no rales, no accessory muscle use Abdominal: soft, non-tender to palpataion, no appreciable organomegaly Extremities: no gross muscle atrophy, no edema, no contractures, left calf tender to palpation with no swelling, erythema, discoloration Neuro: Alert, Oriented, CNII-XII grossly intact, gait normal Psych: well appearing, appropriate affect Data Received Today: Pertinent Labs: WBC 9.53, hemoglobin 14.1, hematocrit 44.7, platelets 276, sodium 139, potassium 4.3, chloride 104, carbon dioxide 29, BUN 19, creatinine 0.86, glucose 135 Vitals: Temperature 98.2, pulse rate 62, respiratory rate 18, blood pressure 132/78, O2 sat 94% on room air Imaging: Lumbar spine x-ray showed mild multilevel degenerative disc disease. At least moderate facet arthropathy lower lumbar spine. No vertebral compression collapse or malalignment Left hip x-ray showed osteopenia. No acute osseous abnormality seen. Assessment and Plan: Occlusive Peripheral artery disease of the left superficial femoral artery and the right distal common femoral artery Left hip pain -CTA bilateral lower extremities completed showing atherosclerotic disease involving the abdominal aorta and lower extremity vasculature with long segment occlusion of the left superficial femoral artery beginning at its origin with distal reconstitution and occlusion of the right distal common femoral artery with continued long segment occlusion of the superficial right femoral artery with distal reconstitution and 3 vessels are reported to be crossing the ankle joints bilaterally. -Lower extremity ultrasound on 06/20/2024 showed severe arterial disease in the right lower extremity and mild arterial disease in the left lower extremity. - Left hip x-ray 06/20/2024 showed osteopenia. No acute osseous abnormality seen. -Lumbar spine x-ray on 06/20/2024 showed mild multilevel degenerative disc disease. At least moderate facet arthropathy lower lumbar spine. No vertebral compression collapse or malalignment - Discussed plan of care with Dr. Charles. Will workup for orthopedic related cause of left lower extremity pain since the 6-hour vascular hyper procedure consisting of a femoral endarterectomy, iliac stent and femoral to popliteal bypass surgery would be a high risk. -Awaiting recommendations from Orthopedic surgery -Discontinue IV heparin for now -Telemetry monitoring -Symptomatic care and pain management with Tylenol 650 mg p.o. every 6 hours as needed for mild pain, Dilaudid 0.5 mg every 3 hours as needed for moderate to severe pain -Continue aspirin 81 mg daily, atorvastatin 40 mg daily, and Effient 10 mg daily. -Monitor morning CBC. Insulin-dependent diabetes mellitus with hyperglycemia - Previous hemoglobin A1c was 8.8% in January - Hemoglobin A1c obtained this time was 7.8 - Continue sliding scale insulin - Continue Humalog 35 units SQ twice daily - Discontinue NPH insulin Hypertension - Monitor vital signs and continue daily medication regimen with amlodipine 10 mg daily, lisinopril 10 mg daily, and metoprolol 25 mg twice daily. History of CAD status post stenting - Continue cardiac medication regimen with aspirin 81 mg daily, atorvastatin 40 mg nightly, Effient 10 mg daily, Farxiga 10 mg daily, lisinopril 10 mg daily, and metoprolol 25 mg twice daily. COPD, not in acute exacerbation - Patient to be provided with supplemental oxygen if/as needed to maintain SpO2 equal to or greater than 92%. -Patient placed on DuoNebs scheduled 3 times daily and as needed for wheezing/shortness of breath. Nicotine dependence - Educated patient on the benefits of smoking cessation and risks of continued use. Recommend stopping smoking. Order placed for nicotine patch 14 mg daily. Leukocytosis -WBC 9.53 - Monitor morning CBC CODE STATUS: Full code DVT prophylaxis: Lovenox 40 mg daily subcu Discussed with: Patient, RN, and vascular surgeon Anticipated discharge date: Pending clinical course Anticipated discharge place: Home I have seen and evaluated the patient today. Discussed with the resident and agree with the residents finding and plan as documented in the resident's note. Changes highlighted in blue font. Objective - Vital Signs Vital signs: Vital Signs Temp 98.1 F 06/21/24 03:07 Pulse 63 06/21/24 03:07 Resp 15 06/21/24 03:07 BP 121/65 06/21/24 03:07 Pulse Ox 90 L 06/21/24 03:07 FiO2 Intake & Output 06/20/24 06/20/24 06/21/24 06:59 18:59 06:59 Intake Total 972.089 5046.301 Balance 297.798 6803.301 Weight 96.3 kg 96.2 kg Intake: IV 110.5 Heparin Sod,Pork in 0.45% 110.5 NaCl 25,000 unit In 0.45 % NaCl 1 250ml.bag @ 9. 798 UNITS/KG/HR 10 mls/hr IV .Q24H [facility] Rx#: [id number] Intake, IV Titration 108.092 220.801 Amount Heparin Sod,Pork in 0.45% 108.092 220.801 NaCl 25,000 unit In 0.45 % NaCl 1 250ml.bag @ 9. 798 UNITS/KG/HR 10 mls/hr IV .Q24H [facility] Rx#: [id number] Oral 540 720 Other: Voiding Method Toilet Toilet # Voids 1 - Labs CBC & Chem 7: 06/21/24 06:16 06/21/24 06:16 Labs: Abnormal Lab Results - Last 24 Hours (Table) 06/20/24 06/20/24 06/20/24 Range/Units 03:59 11:23 16:37 MCHC (32.0-37.0) g/dL POC Glucose (mg/dL) 148 H 138 H (70-110) mg/dL Hemoglobin A1c 7.8 H (<=6.0) % 06/20/24 06/20/24 06/21/24 Range/Units 20:07 20:18 06:14 MCHC (32.0-37.0) g/dL POC Glucose (mg/dL) 171 H 141 H 138 H (70-110) mg/dL Hemoglobin A1c (<=6.0) % 06/21/24 Range/Units 06:16 MCHC 31.5 L (32.0-37.0) g/dL POC Glucose (mg/dL) (70-110) mg/dL Hemoglobin A1c (<=6.0) %
[2024-06-21 15:57] VITALS: BP 151/72; PULSE 60; TEMP 98
[2024-06-21 16:33] LABS: Glucose,Whole Blood 154 mg/dL (70-110)
--- NOTE | 2024-06-21 16:53 | P.DS ---
Providers Date of admission: 06/18/24 22:45 Expected date of discharge: 06/21/24 Attending physician: Joy Garza MD Consults: 06/18/24 22:44 Consult Physician Urgent Consulting Provider: Ericka Vieyra Consult Reason/Comments: peripheral vascular disease Do you want consulting provider notified?: Already Contacted 06/20/24 14:23 Consult Physician Urgent Consulting Provider: Paul Adams Consult Reason/Comments: left hip pain Do you want consulting provider notified?: Yes Primary care physician: Bebo Foster MD Hospital Course: Hospital course: Patient is a pleasant 64-year-old female with a past medical history of CAD status post stenting, hypertension, hyperlipidemia, PAD, COPD with continued nicotine dependence not home oxygen dependent, and insulin-dependent diabetes mellitus. She presented to the emergency department on 06/18/2024 secondary to left lower extremity pain. Patient has known occlusive peripheral arterial disease and was recently evaluated at [facility] with his severe arterial disease of the left lower extremity via ultrasound and was scheduled to follow-up outpatient with Dr. Charles for outpatient stent placement however patient reports pain progressively worsened so she came to the emergency department for evaluation. Upon arrival to our facility, patient underwent evaluation in the ER. Vital signs upon arrival show blood pressure 138/78, heart rate 87, respiratory rate 20, temp 98.3 F, and SpO2 of 93% on room air. EKG was completed showing normal sinus rhythm at 75 bpm with T wave inversion in lateral leads II, III, aVL, V5 and V6 (T wave inversion unchanged from previous EKG completed 01/30/2023 upon personal review and interpretation). Labs completed and reviewed. CBC showing leukocytosis with WBC count of 10.91 and elevated hematocrit of 46.5. Coagulation profile normal findings. BMP showing mild prerenal azotemia with BUN of 22 and hyperglycemia with blood glucose of 184. Calcium normal findings at 9.6. Liver profile unremarkable. CTA bilateral lower extremities completed showing atherosclerotic disease involving the abdominal aorta and lower extremity vasculature with long segment occlusion of the left superficial femoral artery beginning at its origin with distal reconstitution and occlusion of the right distal common femoral artery with cont inued long segment occlusion of the superficial right femoral artery with distal reconstitution and 3 vessels are reported to be crossing the ankle joints bilaterally. Patient was started on high intensity heparin infusion and admitted under our services with consultation to vascular surgery. Patient's left knee pain improved slightly over the course of hospitalization. Patient did not undergo 6-hour vascular hyper procedure consisting of a femoral endarterectomy, iliac stent and femoral to popliteal bypass surgery given the risk would be too high. Vascular surgeon recommended to workup for orthopedic related causes of left lower extremity pain. High intensity heparin infusion was discontinued on 06/20/2024. Orthopedics was consulted on 06/20/2024. Left hip x-ray showed osteopenia, no acute osseous abnormality were seen. Lumbar spine x-ray performed on 06/20/2024 showed mild multilevel degenerative disc disease with at least moderate facet arthropathy lower lumbar spine, no signs of vertebral compression collapse or malalignment. Patient is stable to be discharged home on 06/21/2024 and follow-up with orthopedic surgery and vascular surgery in 1 to 2 weeks after discharge. Physical examination at discharge: GENERAL: This is a 64-year-old in no apparent distress at the time of examination. Pleasant and cooperative. HEENT: Head is atraumatic, normocephalic. Pupils are equal, round, and reactive to light. Sclerae anicteric. Conjunctivae are clear. Mucus membranes of the mouth are moist. Neck is supple. RESPIRATORY: Clear to auscultation. No wheezes, rales, or rhonchi. No use of accessory muscles. Patient maintaining oxygen saturation greater than 92%. No chest wall tenderness is noted on palpation or with deep breathing. CARDIOVASCULAR: Regular rate and rhythm. S1 and S2 noted. No systolic or diastolic murmur auscultated. No JVD noted. No S3 or S4 noted. GASTROINTESTINAL: No distention noted. Abdomen soft and round. Normal active bowel sounds auscultated x 4 quadrants. No pain or tenderness noted upon palpation. INTEGUMENTARY: No cyanosis. No jaundice. No rashes noted. No cellulitis noted. EXTREMITIES: 2+ peripheral pulses. No evidence of peripheral edema. No calf tenderness. Left knee mildly tender to palpation with no signs of discoloration, swelling, erythema or drainage. NEUROLOGIC: Cranial nerves II-XII intact. PSYCHIATRIC: Awake, alert, and oriented X 3. Appropriate affect. Intact judgement and insight. Discharge diagnoses: Occlusive peripheral artery disease of the left superficial femoral artery and the right distal common femoral artery Left knee/hip pain Insulin-dependent diabetes mellitus with hyperglycemia Hypertension History of CAD status post stenting COPD, not in acute exacerbation Nicotine dependence Leukocytosis A total of 36 minutes of time were spent preparing this complex discharge summary. Patient was discharged on 06/21/24 at 1643. I have seen and evaluated the patient today. Discussed with the resident and agree with the residents finding and plan as documented in the resident's note. Changes highlighted in blue font. Patient Condition at Discharge: Stable Plan - Discharge Summary New Discharge Prescriptions: Continue Hydrocodone/Acetaminophen [[place] 10-325] 1 tab PO TID PRN PRN Reason: Pain sitaGLIPtin [Januvia] 100 mg PO DAILY amLODIPine [Norvasc] 10 mg PO DAILY Prasugrel [Effient] 10 mg PO DAILY #30 tab Metoprolol Tartrate [Lopressor] 25 mg PO BID #60 tab Dapagliflozin Propanediol [Farxiga] 10 mg PO DAILY Insulin NPH Hum/Reg Insulin Hm [NovoLIN 70-30 100 Unit/ml Vial] 35 unit SQ BID-W/MEALS lisinopriL [Zestril] 10 mg PO DAILY Aspirin EC [Ecotrin Low Dose] 81 mg PO DAILY Levothyroxine Sodium [Synthroid] 125 mcg PO DAILY Atorvastatin [Lipitor] 40 mg PO HS Erythromycin Ophth Oint [Romycin Ophth Oint] 1 applic RIGHT EYE BID Discontinued Insulin NPH Human Isophane [NovoLIN N Flexpen] 13 units SQ AC-BID Discharge Medication List Hydrocodone/Acetaminophen [[place] 10-325] 1 tab PO TID PRN 10/04/14 [History] Levothyroxine Sodium [Synthroid] 125 mcg PO DAILY 01/29/23 [History] amLODIPine [Norvasc] 10 mg PO DAILY 01/29/23 [History] sitaGLIPtin [Januvia] 100 mg PO DAILY 01/29/23 [History] Metoprolol Tartrate [Lopressor] 25 mg PO BID #60 tab 01/30/23 [Rx] Prasugrel [Effient] 10 mg PO DAILY #30 tab 01/30/23 [Rx] Aspirin EC [Ecotrin Low Dose] 81 mg PO DAILY 06/19/24 [History] Atorvastatin [Lipitor] 40 mg PO HS 06/19/24 [History] Dapagliflozin Propanediol [Farxiga] 10 mg PO DAILY 06/19/24 [History] Erythromycin Ophth Oint [Romycin Ophth Oint] 1 applic RIGHT EYE BID 06/19/24 [History] Insulin NPH Hum/Reg Insulin Hm [NovoLIN 70-30 100 Unit/ml Vial] 35 unit SQ BID- W/MEALS 06/19/24 [History] lisinopriL [Zestril] 10 mg PO DAILY 06/19/24 [History] Follow up Appointment(s)/Referral(s): Bebo Foster MD [Primary Care Provider] - 1-2 days (Please call to make a follow up appointment when offices are open) Ericka Vieyra DO [STAFF PHYSICIAN] - 1 Week (Please call to make a follow up appointment when offices are open) Paul Adams MD [Medical Doctor] - 1 Week (Please call to make a follow up appointment when offices are open) Patient Instructions/Handouts: Peripheral Artery Disease (DC) Discharge/Stand Alone Forms: Who Do I Call?, Personal Registered Pharmacy Technician Discharge Disposition: HOME SELF-CARE
== END 2024-06-21 17:13 | disposition home or self-care (01) | DRG 301 ==
LOC: EC 18:48 → OBSVTOIN 22:45 → 3SCARD 22:45
PROVIDERS: ADMIT Internal Medicine; ATTEND Internal Medicine
DX: E11.51 Type 2 diabetes mellitus with diabetic peripheral angiopathy without gangrene (principal); D72.828 Other elevated white blood cell count; E11.65 Type 2 diabetes mellitus with hyperglycemia; I10 Essential (primary) hypertension; F17.210 Nicotine dependence, cigarettes, uncomplicated; J44.9 Chronic obstructive pulmonary disease, unspecified; I70.0 Atherosclerosis of aorta; I70.223 Atherosclerosis of native arteries of extremities with rest pain, bilateral legs; Z79.4 Long term (current) use of insulin; M85.852 Other specified disorders of bone density and structure, left thigh; M51.369 Other intervertebral disc degeneration, lumbar region without mention of lumbar back pain or lower extremity pain; M47.816 Spondylosis without myelopathy or radiculopathy, lumbar region; I25.10 Atherosclerotic heart disease of native coronary artery without angina pectoris; Z79.02 Long term (current) use of antithrombotics/antiplatelets; Z79.84 Long term (current) use of oral hypoglycemic drugs; Z79.890 Hormone replacement therapy; Z95.5 Presence of coronary angioplasty implant and graft; Z79.82 Long term (current) use of aspirin; Z79.899 Other long term (current) drug therapy; Z71.6 Tobacco abuse counseling
CPT/HCPCS: 36415; 71045; 72110; 73502; 80053; 83036; 83735; 85025; 85027; 85610; 85730; 93005; 93306; 93923; 94640; 96365; 96366; 96375; 96376; 99291